=== PATIENT | male | born 1970 | race Caucasian/White ===

== ENCOUNTER → 2017-09-04 12:01 | Outpatient (CLI) | payer OTHER, SELFPAY ==
--- NOTE | 2017-09-04 | DI.RAD.S_ITS ---
PROCEDURE: XR CHEST 2V INDICATIONS: COUGH TECHNIQUE: 2 views of the chest were acquired. COMPARISON: Chest 06/17/2015 FINDINGS: Surgical changes and devices: Gastric banding device. Lungs and pleura: No pneumothorax. In the region of the minor fissure is an oval-shaped masslike density measuring 3.6 x 6.5 cm and appearing to contain a small central lucency suggesting cavitation. There is slight blunting of the posterior costophrenic angle indicating small effusion. Mediastinum: Mediastinal contours are normal. Heart size is normal. Bones and chest wall: No suspicious bony abnormalities. Soft tissues appear unremarkable. IMPRESSION: Right middle lobe mass lesion could be inflammatory but possibility of tumor, benign or malignant, cannot be excluded. Round atelectasis is possible. Fluid collection within the minor fissure, pseudotumor, is also possible, especially in view of small posterior effusion. Contrast-enhanced CT chest is suggested along with clinical/laboratory correlation for infectious process. Possibility of cavitation is raised. Dictated by: Erlin Baron M.D. on 09/04/2017 at 12:55 Approved by: Erlin Baron M.D. on 09/04/2017 at 13:02
== END ==
PROVIDERS: PCP Family Medicine; Visit Provider Family Medicine
DX: R05 Cough (principal); R91.8 Other nonspecific abnormal finding of lung field
CPT/HCPCS: 71046

== ENCOUNTER → 2017-09-07 14:05 | Outpatient (CLI) | payer OTHER, SELFPAY ==
--- NOTE | 2017-09-07 | DI.CT.S_ITS ---
PROCEDURE: CT CHEST W CON INDICATIONS: RIGHT LUNG MASS TECHNIQUE: After the administration of intravenous contrast, 5 mm thick sections acquired from the pulmonary apices to the posterior costophrenic angles. 7 mm thick coronal and sagittal MIP reformats were acquired. For radiation dose reduction, the following was used: automated exposure control, adjustment of mA and/or kV according to patient size. COMPARISON: [facility], , XR CHEST 2V, 09/04/2017, 12:10. FINDINGS: Image quality: Excellent. Lungs and pleura: In the area described on the prior radiographic comparison study dated 09/04/17, there is a large cavitary mass with surrounding groundglass attenuation measuring approximately 4.6 x 5.0 cm. Additional 1.4 cm nodule seen along the right heart border on image 26 series 3. Mild patchy opacities versus scarring within the lingula image 29 series 3. Mediastinum: Heart size is normal. No pericardial effusion. Enlarged subcarinal lymph node measuring 1.3 x 1.9 cm on image 28 series 2. Thoracic aorta and central pulmonary arteries are normal in size. Status post gastric banding. Circumferential distal esophageal wall thickening Bones and chest wall: 7mm sclerotic focus in the T9 vertebral body. No vertebral body compression fractures. No axillary or supraclavicular adenopathy by size criteria. Thyroid gland negative. Abdomen: Visualized upper abdominal solid organs appear normal. Upper abdominal bowel loops are normal in caliber. IMPRESSION: Large right middle lobe cavitary mass, which could reflect cavitary pneumonia, TB/fungal infection, or neoplasm such as squamous cell carcinoma among other possibilities. Recommend clinical correlation. Additional 1.4 cm solid nodule/satellite lesion along the right heart margin. Enlarged subcarinal lymph node, and prominent (although subcentimeter) right paratracheal lymph node. Circumferential distal esophageal wall thickening which could reflect severe esophagitis or post surgical appearance related to gastric banding, however if there is concern for esophageal malignancy; endoscopy could be performed for further assessment. Findings were personally telephoned to Dr. Davenport on 09/07/17 Dictated by: Abraham Dukes M.D. on 09/07/2017 at 15:43 Approved by: Abraham Dukes M.D. on 09/07/2017 at 16:28
== END ==
PROVIDERS: Family Provider Family Medicine; PCP Family Medicine; Visit Provider Family Medicine
DX: R91.8 Other nonspecific abnormal finding of lung field (principal); R59.0 Localized enlarged lymph nodes; R85.89 Other abnormal findings in specimens from digestive organs and abdominal cavity
CPT/HCPCS: 71260; Q9967

== ENCOUNTER → 2017-09-12 08:27 | Outpatient (CLI) | payer OTHER, SELFPAY ==
[2017-09-12 08:49] LABS: Platelet Count 351 X10^3/uL (150-400)
[2017-09-12 08:54] LABS: INR 1.3 (0.9-1.3); Prothrombin Time 14.3 SECONDS (10.1-12.7)
== END ==
PROVIDERS: PCP Family Medicine; Visit Provider Family Medicine
DX: R22.2 Localized swelling, mass and lump, trunk (principal)
CPT/HCPCS: 36415; 85049; 85610

== ENCOUNTER 2017-09-14 07:21 | Day surgery (SDC) | payer OTHER, SELFPAY ==
[2017-09-14] VITALS (12 sets, daily range): BP systolic 95–138; BP diastolic 62–88; PULSE 70–92; RESP 14–17; TEMP 36.2–37.7; O2SAT 96–100; BMI 30.8
--- NOTE | 2017-09-14 | DI.CT.S_ITS ---
PROCEDURE: CT BIOPSY LUNG RT Sedation analgesia for 40 minutes. INDICATIONS: RIGHT LUNG MASS TECHNIQUE: The indications, alternatives, benefits, risks, and possible complications of the procedure were communicated to the patient. Informed written consent from the patient was obtained and placed in the chart. Continuous EKG and hemodynamic monitoring was started by trained personnel. The patient was brought to the CT suite and finish repairer spiral CT imaging was performed with localization grid. The appropriate site for percutaneous access to the biopsy target was marked, was prepped and draped sterilely, and was infused with local anaesthesia. Under CT guidance, a core biopsy trocar and needle set was advanced to the biopsy target, and specimen(s) were obtained. The trocar and needle were then removed, and the patient was sent for post-procedure monitoring. COMPARISON: [facility], CT, CT CHEST [facility], 09/07/2017, 14:20. FINDINGS: Biopsy site: Right middle lobe mass Needle: 20 gauge biopsy needle with introducer trocar. Number of passes: 3 Medications: 1% lidocaine for local anaesthesia. IV Fentanyl and Versed for conscious sedation for 40 minutes (see nursing record). Complications: None. IMPRESSION: Successful CT-guided biopsy of right middle lobe lung mass biopsy. Dictated by: Kevin Sullivan M.D. on 09/14/2017 at 12:58 Approved by: Kevin Sullivan M.D. on 09/14/2017 at 13:02
--- NOTE | 2017-09-14 | PATH_ITS ---
[facility] Accession Number: [id number] . 01 Material submitted: . RIGHT LOWER LUNG . 02 Diagnosis: Right Lower Lung, Biopsy: Mild interstitial inflammation, reactive type II pneumocytes and foci of alveolar fibrin. Please see comment. No evidence of neoplasm. MRV/09/20/2017 . 02 Comment: A few minute fragments of alveolar parenchyma are present for evaluation. No obvious viral cytopathic effects or fungal organisms are identified. There is no necrosis, atypia, or neoplasm. . These changes are nonspecific, especially given the small biopsy size, but raise the consideration of an acute lung injury pattern. The differential diagnosis includes infection, collagen vascular disease, drug toxicity, and idiopathic forms. A wedge biopsy for further characterization of this process is recommended, if clinically indicated. . As part of routine quality reviewer, this case was also reviewed by Dr. Garcia who agrees with this interpretation. Dr. Foreman discussed the results with Dr. Davenport on 09/20/2017. . 02 Electronically signed: . Keli Foreman MD, Pathologist NPI- [id number] . 01 Gross description: . Received in formalin are multiple fragments of sheehan-white and red-brown tissue (0.2 x 0.2 cm by less than 0.1 cm in aggregate). Entirely submitted in cassette A1. ([id number]) /FRR . 02 Pathologist provided ICD-10: S27.301A . 02 CPT . 268039 Performed at: 01 [facility] [address] [facility] [place], [place], [place] [id number] MD William Munson MD Phone: [phone] Performed at: 02 [facility] [place] [address] [place] [id number] MD Naun Clark MD Phone: [phone]
--- NOTE | 2017-09-14 | DI.RAD.S_ITS ---
PROCEDURE: XR CHEST 1V INDICATIONS: post lung biopsy TECHNIQUE: One view of the chest was acquired. COMPARISON: [facility], , XR CHEST 2V, 09/04/2017, 12:10. [facility], CR, CHEST 2 VIEW, 06/17/2015, 12:42. Located [facility], CR, CHEST 2 VIEW, 11/17/2014, 6:57. FINDINGS: Surgical changes and devices: None. Lungs and pleura: No pleural effusions or pneumothorax. Lungs are again seen to be abnormal with an area of what appears to be alveolar infiltration, and a rounded morphology, beneath the minor fissure on the right containing an air-fluid level. The degree of alveolar infiltration has increased, mildly, now measuring up to 7.2 cm transverse and 5.4 cm craniocaudad, versus 6.5 x 3.6 cm previously. The air-fluid level is more easily visualized than on the prior study.. Mediastinum: Mediastinal contours appear normal. Heart size is normal. Bones and chest wall: No suspicious bony lesions. Overlying soft tissues appear unremarkable. Note is made of what appears to be a gastric lap band faintly visualized at the epigastrium near the midline. IMPRESSION: Cavitary pneumonia is considered more likely the cause of the abnormality on the right within the right middle lobe superiorly than cavitary malignancy. There is an air-fluid level, involving the upper quarter of the area of presumed dense pneumonia (rounded pneumonia). The degree of lung involvement has mildly enlarged as noted. Incidental mode of what appears to be a gastric lap band. Dictated by: Miguel Soto M.D. on 09/14/2017 at 13:29 Approved by: Miguel Soto M.D. on 09/14/2017 at 13:32
[2017-09-14] MEDS: fentaNYL 100 MCG/2 ML INJ IV (09:35)
[2017-09-14] MEDS: MIDAZOLAM 2 MG/2 ML VIAL 1 MG IV (09:35)
--- NOTE | 2017-09-14 13:14 | SUR.PHASEII ---
PT LEFT FOR FOLLOW UP CHEST XRAY VIA WHEELCHAIR IN STABLE CONDITION. PT ALERT AND TALKING TO RN. PT RETURNED FROM CHEST XRAY IN STABLE CONDITION. PT ALERT AND TALKING TO RN. BED IN LOWEST POSITION AND CALL LIGHT GIVEN TO PT. PT APPEARS COMFORTABLE AT THIS TIME.
--- NOTE | 2017-09-14 13:55 | SUR.PREOP ---
Spoke with Radiologist post CXR and approval for discharge received.
== END 2017-09-14 13:47 | disposition home or self-care (01) ==
LOC: OR 07:22
PROVIDERS: Family Provider Family Medicine; PCP Family Medicine; Visit Provider Family Medicine
PROC: BB24ZZZ Computerized Tomography (CT Scan) of Bilateral Lungs (ICD-10-PCS; CPT 32408; principal; 2017-09-14 08:30)
DX: S27.301A Unspecified injury of lung, unilateral, initial encounter (principal); R91.8 Other nonspecific abnormal finding of lung field; R04.89 Hemorrhage from other sites in respiratory passages; R61 Generalized hyperhidrosis; R79.82 Elevated C-reactive protein (CRP); R05 Cough; R53.83 Other fatigue
CPT/HCPCS: 32405; 71045; 77012; J2250; J3010

== ENCOUNTER → 2017-09-29 14:32 | Outpatient (CLI) | payer OTHER, SELFPAY ==
--- NOTE | 2017-09-29 | DI.RAD.S_ITS ---
PROCEDURE: XR CHEST 2V INDICATIONS: FOLLOW UP LUNG LESION TECHNIQUE: 2 views of the chest were acquired. COMPARISON: [facility], CT, CT CHEST W CON, 09/07/2017, 14:20. [facility], CR, XR CHEST 2V, 09/04/2017, 12:10. FINDINGS: Surgical changes and devices: None. Lungs and pleura: No pleural effusions or pneumothorax. Interval decrease in size of right middle lobe cavitary mass. Lung zones are clear. Mediastinum: Mediastinal contours are normal. Heart size is normal. Bones and chest wall: No suspicious bony abnormalities. Soft tissues appear unremarkable. IMPRESSION: Decrease in size of right middle lobe cavitary masslike opacity. Dictated by: Donn Long RRA Interpreted: Juan Baron MD on 09/29/2017 at 15:20 Approved by: Erlin Baron M.D. on 10/02/2017 at 9:23
== END ==
PROVIDERS: PCP Family Medicine; Visit Provider Family Medicine
DX: R91.1 Solitary pulmonary nodule (principal)
CPT/HCPCS: 71046

== ENCOUNTER → 2017-10-16 10:42 | Outpatient (CLI) | payer OTHER, SELFPAY ==
--- NOTE | 2017-10-16 | DI.RAD.S_ITS ---
PROCEDURE: XR CHEST 2V INDICATIONS: 47 year-old male with right lung mass. TECHNIQUE: 2 views of the chest were acquired. COMPARISON: [facility], CT, CT BIOPSY LUNG RT, 09/14/2017, 8:47. [facility], CR, XR CHEST 2V, 09/29/2017, 14:47. [facility], CR, XR CHEST 1V, 09/14/2017, 13:07. [facility], CR, XR CHEST 2V, 09/04/2017, 12:10. FINDINGS: Surgical changes and devices: Patient is status post gastric banding surgery. Lungs and pleura: No pleural effusions or pneumothorax. No acute airspace opacities. Previously noted cavitary right lung lesion has nearly completely resolved, with residual linear scarring. Mediastinum: Mediastinal contours are normal. Heart size is normal. Bones and chest wall: No suspicious bony abnormalities. Soft tissues appear unremarkable. IMPRESSION: Interval near complete resolution of right lung cavitary lesion, with residual linear scarring. Dictated by: Spencer Lewis M.D. on 10/16/2017 at 11:58 Approved by: Spencer Lewis M.D. on 10/16/2017 at 12:00
== END ==
PROVIDERS: Family Provider Family Medicine; PCP Family Medicine; Visit Provider Family Medicine
DX: R91.8 Other nonspecific abnormal finding of lung field (principal)
CPT/HCPCS: 71046

== ENCOUNTER → 2017-11-15 11:17 | Outpatient (CLI) | payer OTHER, SELFPAY ==
--- NOTE | 2017-11-15 11:20 | DI.RAD.S_ITS ---
PROCEDURE: XR CHEST 2V INDICATIONS: LUNG MASS TECHNIQUE: 2 views of the chest were acquired. COMPARISON: [facility], CR, XR CHEST 2V, 09/29/2017, 14:47. [facility], CR, XR CHEST 2V, 10/16/2017, 11:21. FINDINGS: Surgical changes and devices: Gastric banding.. Lungs and pleura: No pleural effusions or pneumothorax. Lungs are clear, very slight linear density in the right middle lobe near the minor fissure as residual from previous inflammation.. Mediastinum: Mediastinal contours are normal. Heart size is normal. Bones and chest wall: No suspicious bony abnormalities. Soft tissues appear unremarkable. IMPRESSION: Mild residual thickening right middle lobe, otherwise normal chest. Dictated by: Erlin Baron M.D. on 11/15/2017 at 12:57 Approved by: Erlin Baron M.D. on 11/15/2017 at 12:59
== END ==
PROVIDERS: PCP Family Medicine; Visit Provider Family Medicine
DX: R91.8 Other nonspecific abnormal finding of lung field (principal)
CPT/HCPCS: 71046

== ENCOUNTER → 2019-01-09 11:40 | Outpatient (CLI) | payer OTHER, SELFPAY ==
--- NOTE | 2019-01-09 | DI.RAD.S_ITS ---
PROCEDURE: XR CERVICAL SPINE 4V OR 5V INDICATIONS: NECK PAIN TECHNIQUE: 5 views of the cervical spine were acquired. COMPARISON: None. FINDINGS: Bones: No fractures or dislocations to the C7-T1 level. No suspicious bony lesions. There is straightening of normal cervical lordosis. No spondylolisthesis. Mild degenerative endplate changes at C4-5 through C6-7 levels are seen. There is decreased range of motion between flexion and extension, with preserved cervical bony alignment. Soft tissues: Prevertebral soft tissues are normal in thickness. IMPRESSION: Mild degenerative endplate changes in mid to lower cervical spine. Slightly decreased range of motion. No acute compression fracture or spondylolisthesis. Dictated by: Vincent Severino M.D. on 01/09/2019 at 13:26 Approved by: Vincent Severino M.D. on 01/09/2019 at 13:27
== END ==
PROVIDERS: PCP Family Medicine; Visit Provider Family Medicine
DX: M54.2 Cervicalgia (principal); M47.812 Spondylosis without myelopathy or radiculopathy, cervical region
CPT/HCPCS: 72050

== ENCOUNTER → 2019-04-22 17:46 | Outpatient (CLI) | payer OTHER, SELFPAY ==
--- NOTE | 2019-04-22 17:47 | DI.MRI.S_ITS ---
PROCEDURE: MR CERVICAL SPINE WO CON INDICATIONS: Right arm pain. Neck pain TECHNIQUE: Noncontrast sagittal T1 spin echo and T2 fast spin echo, sagittal STIR, foraminal oblique sagittal T2 fast spin echo, and axial gradient echo or T2 fast spin echo through the cervical spine. COMPARISON: None. FINDINGS: Image quality: Excellent. Alignment and Curvature: Straightening of the normal lordotic curvature. Trace anterolisthesis of C2 on C3, and C4 on C5 Bone Marrow: No fracture. Multilevel degenerative endplate sclerosis and spurring. Diffuse facet arthropathy. Diffuse mild disc height loss. Spinal Cord: Visualized spinal cord has normal size and signal. No cerebellar tonsillar herniation. Paraspinous Soft Tissues: No paravertebral masses. Prevertebral soft tissues are normal in thickness. C2-C3: Asymmetric mild left-sided canal stenosis. Mild right foraminal narrowing without nerve root compression. Moderate to severe left foraminal stenosis with nerve root compression C3-C4: Minimal central canal narrowing. Mild bilateral foraminal stenosis C4-C5: Moderate central canal stenosis. Bilateral severe foraminal stenoses with nerve root compression C5-C6: Moderate central canal narrowing. Mild bilateral foraminal narrowing. C6-C7: Asymmetric mild-moderate right-sided canal narrowing. Severe right foraminal stenosis with nerve root compression. Moderate left foraminal stenosis. C7-T1: No definite central canal narrowing. No foraminal stenosis IMPRESSION: Straightening of the normal cervical lordosis Diffuse bilateral foraminal stenoses as detailed above by spinal level Moderate C4-C5 and C5-C6 central canal narrowing Asymmetric mild-moderate C6-C7 right-sided canal narrowing Asymmetric mild C2-C3 left-sided canal narrowing Dictated by: Abraham Dukes M.D. on 04/23/2019 at 10:34 Approved by: Abraham Dukes M.D. on 04/23/2019 at 10:48
== END ==
PROVIDERS: PCP Family Medicine; Visit Provider Family Medicine
DX: M54.2 Cervicalgia (principal); M79.601 Pain in right arm; M48.02 Spinal stenosis, cervical region
CPT/HCPCS: 72141

== ENCOUNTER → 2020-01-02 15:41 | Outpatient (CLI) | payer OTHER, SELFPAY ==
--- NOTE | 2020-01-02 | DI.RAD.S_ITS ---
PROCEDURE: XR SHOULDER RT MIN 2V INDICATIONS: RIGHT SHOULDER PAIN TECHNIQUE: 3 views of the shoulder were acquired. COMPARISON: None. FINDINGS: Bones: No fracture. Mild AC and glenohumeral joint degeneration. Soft tissues: No suspicious soft tissue calcifications. IMPRESSION: Mild right shoulder joint degeneration Dictated by: Abraham Dukes M.D. on 01/02/2020 at 16:13 Approved by: Abraham Dukes M.D. on 01/02/2020 at 16:15
== END ==
PROVIDERS: PCP Family Medicine; Referring Provider Family Medicine; Visit Provider Family Medicine
DX: M25.511 Pain in right shoulder (principal); M19.011 Primary osteoarthritis, right shoulder
CPT/HCPCS: 73030

== ENCOUNTER 2020-05-01 04:14 | Emergency (ER) | payer OTHER, SELFPAY ==
[2020-05-01] VITALS (8 sets, daily range): BP systolic 128–162; BP diastolic 69–102; PULSE 63–78; RESP 13–22; TEMP 36.6; O2SAT 99–100; BMI 30.2
--- NOTE | 2020-05-01 04:30 | DI.CT.S_ITS ---
PROCEDURE: CT ABDOMEN PELVIS W CON INDICATIONS: severer abdominal pain, history of gastric surgery TECHNIQUE: After the administration of intravenous contrast, 5 mm thick sections acquired from the diaphragm to the symphysis. 5 mm coronal and sagittal reformats were acquired. For radiation dose reduction, the following was used: automated exposure control, adjustment of mA and/or kV according to patient size. COMPARISON: [facility], CT, CT CHEST W CON, 09/07/2017, 14:20. FINDINGS: Image quality: Excellent. ABDOMEN: Lung bases: Lung bases are clear. Heart size is normal. There is a small hiatal hernia. Concentric thickening in the distal esophagus. Solid organs: Liver is normal in size and enhancement. Gallbladder contains small gallstones. Biliary system is non dilated. Pancreas enhances normally. Spleen is normal in size and enhancement. No adrenal nodules. Kidneys demonstrate normal size and enhancement, without hydronephrosis. Peritoneum and bowel: Gastric banding. Stomach is distended with an air-fluid level. Bowel loops demonstrate normal wall thickness and caliber. Scattered colonic diverticula are present. No CT findings to suggest acute diverticulitis. No free fluid or air. Nodes and vessels: No retroperitoneal or mesenteric adenopathy by size criteria. Aorta and inferior vena cava are normal in size. Miscellaneous: No ventral hernias. PELVIS: Genitourinary: Bladder wall thickness is normal. Prostate is enlarged. Miscellaneous: No inguinal adenopathy. Small fat containing right inguinal hernia. Bones: No suspicious bony lesions. No vertebral body compression fractures. Degenerative disc and facet disease in lumbar spine. There is grade 1 anterolisthesis of L5 on S1. Mild chronic anterior wedge deformity of T11. IMPRESSION: 1. Gastric banding. There is gastric distention and an air-fluid level in stomach. The findings suggest nonspecific gastritis. 2. Small hiatal hernia. There is concentric thickening of the distal esophagus near the gastroesophageal junction, which may be secondary to esophagitis but EGD is suggested for further evaluation as esophageal neoplasm cannot be excluded. 3. Cholelithiasis. 4. Mild diverticulosis without diverticulitis. No significant discrepancy with the aircraft systems technician radiology preliminary report. Dictated by: Kevin Sullivan M.D. on 05/01/2020 at 8:06 Approved by: Kevin Sullivan M.D. on 05/01/2020 at 8:12
--- NOTE | 2020-05-01 04:35 | ED_ITS ---
HPI - Chest Pain General Chief Complaint: Chest Pain Stated Complaint: pain through chest wrapps around to back Time Seen by Provider: 05/01/20 04:16 Source: patient Mode of arrival: Ambulatory Limitations: no limitations History of Present Illness HPI narrative: 49-year-old male nonsmoker with a history of reflux and prior gastric band surgery presents with his in the chief complaint of epigastric and left upper abdominal pain and radiates to the back and sometimes down into his belly. He states that started rather suddenly a few hours prior to his arrival and does not seem to have any provocation or palliation. He denies any exertional component. He is not dizzy nor weak or lightheaded. She denies any shortness of breath. He has had no nausea, vomiting or diarrhea. He denies any recent travel or injury. MD complaint: chest pain Onset (ago): hour(s) Duration: intermittent Onset: during rest Pain location: left chest Severity: moderate Quality: tightness Pain radiation: none Relieving factors: nothing Exacerbating factors: nothing Related Data Allergies Allergy/AdvReac Type Severity Reaction Status Date / Time No Known Drug Allergies Allergy Verified 09/14/17 09:09 Review of Systems Constitutional Constitutional: Denies chills, Denies fatigue, Denies fever(s), Denies frequent falls, Denies lethargy and Denies weakness Eyes Eyes: Denies change in vision, Denies eye discharge, Denies irritation and Denies loss of vision ENT Ears, Nose, Mouth, and Throat: Denies change in voice, Denies dizziness, Denies neck pain, Denies sore throat and Denies throat swelling Cardiovascular Cardiovascular: Denies chest pain, Denies irregular heart rhythm, Denies lightheadedness, Denies palpitations, Denies dyspnea, Denies dyspnea on exertion and Denies orthopnea Respiratory Respiratory: Denies cough, Denies dyspnea, Denies dyspnea on exertion and Denies wheezing Gastrointestinal Gastrointestinal: Reports abdominal pain, Denies change in bowel habits, Denies diarrhea, Reports nausea and Denies vomiting Musculoskeletal Musculoskeletal: Denies neck pain and Denies numbness Integumentary/Breasts Skin/Breast: Denies pruritus, Denies erythema, Denies rash and Denies wounds Neurologic Neurologic: Denies behavioral changes, Denies confusion, Denies dizziness, Denies frequent falls, Denies loss of vision, Denies numbness and Denies weakness Psychiatric Psychiatric: Denies anxiety, Denies behavioral changes, Denies confusion, Denies depression, Denies homicidal ideation and Denies suicidal ideation Endocrine Endocrine: Denies fatigue, Denies flushing and Denies palpitations Hematologic/Lymphatic Hematologic/Lymphatic: Denies easy bruising Allergic/Immunologic Allergic/Immunologic: Denies urticaria, Denies throat swelling and Denies wheezing Patient History Social History household members: spouse Smoking Status: Never smoker Smoking Status: Never smoker Substance Use Type: does not use Exam Narrative Exam Narrative: GENERAL: [49] year old patient appears stated age. Well- nourished, well-developed patient, in mild distress. HEAD: Atraumatic. Normocephalic. EYES: Pupils equal round and reactive. Extraocular motions intact. No scleral icterus. No injection or drainage. ENT: Nose without bleeding, purulent drainage. Throat without erythema, tonsillar hypertrophy or exudate. Airway patent. NECK: Trachea midline. Non tender CARDIOVASCULAR: Regular rate and rhythm without murmurs, gallops, or rubs. RESPIRATORY: Clear to auscultation. Breath sounds equal bilaterally. No wheezes, rales, or rhonchi. GASTROINTESTINAL: Abdomen soft, tender in the epigastrium and left upper quadrant to palpation, nondistended. EXTREMITIES: No edema or joint tenderness. BACK: Nontender without deformity or crepitance. No flank tenderness. NEURO: AOx3. SKIN: No rash or erythema of visible areas Initial Vital Signs Initial Vital Signs: Vital Signs Temperature 98 F 05/01/20 04:15 Pulse Rate 76 05/01/20 04:15 Respiratory Rate 18 05/01/20 04:15 Blood Pressure 162/102 H 05/01/20 04:15 Pulse Oximetry 100 05/01/20 04:15 Course Orders Ordered: ED Orders 05/01/20 EKG-12 Lead Stat 05/01/20 04:30 CT abdomen pelvis w con Stat Complete Blood Count AUTO DIFF Stat Comprehensive Metabolic Panel Stat Lipase Stat Troponin & CK Cardiac Panel Stat 05/01/20 06:10 Troponin I Stat Discontinued Medications Hydromorphone HCl (Hydromorphone 0.5 Mg Inj) 0.5 mg IV NOW ONE Stop: 05/01/20 04:30 Last Admin: 05/01/20 04:51 Dose: 0.5 mg Documented by: SHITAL Sodium Chloride (Normal Saline 0.9%) 1,000 mls @ 1,000 mls/hr IV BOLUS ONE Stop: 05/01/20 05:28 Last Infusion: 05/01/20 06:31 Dose: 0 mls/hr Documented by: Admin: 05/01/20 04:51 Dose: 1,000 mls/hr Documented by: SHITAL Ondansetron HCl (Ondansetron 4 Mg/2 Ml Inj) 4 mg IV NOW ONE Stop: 05/01/20 04:30 Last Admin: 05/01/20 04:50 Dose: 4 mg Documented by: SHITAL Pantoprazole Sodium (Pantoprazole 40 Mg Vial) 40 mg IV NOW ONE Stop: 05/01/20 04:30 Last Admin: 05/01/20 04:51 Dose: 40 mg Documented by: SHITAL Vital Signs Vital signs: Vital Signs - 8 hr 05/01/20 04:15 05/01/20 04:19 05/01/20 04:30 Temperature 98 F Pulse Rate 76 78 75 Respiratory Rate 18 13 Blood Pressure 162/102 H Pulse Oximetry 100 99 100 05/01/20 05:00 05/01/20 05:30 05/01/20 06:00 Temperature Pulse Rate 69 71 63 Respiratory Rate 22 13 16 Blood Pressure Pulse Oximetry 99 100 100 05/01/20 06:30 05/01/20 06:54 Temperature Pulse Rate 66 70 Respiratory Rate 18 18 Blood Pressure 128/69 Pulse Oximetry 100 99 MDM - Chest Pain Lab Data Result diagrams: 05/01/20 04:30 05/01/20 04:30 Labs: Lab Results 05/01/20 05/01/20 05/01/20 Range/Units 04:30 04:30 06:10 WBC 6.6 (4.5-11.0) X10^3/uL RBC 5.50 (4.5-5.9) X10^6/uL Hgb 15.2 (13.5-17.5) g/dL Hct 45.4 (41-53) % MCV 82.5 (80-100) fL MCH 27.6 (26-34) PG MCHC 33.5 (30-36) % RDW 13.6 (11.6-14.8) % Plt Count 207 (150-400) X10^3/uL Neut % (Auto) 44.7 L (50-75) % Lymph % (Auto) 38.2 (25-40) % [place] % (Auto) 13.4 (3-14) % Eos % (Auto) 3.2 (2-4) % Baso % (Auto) 0.5 (0-2) % Neut # (Auto) 2900 (9244-5640) /uL Lymph # (Auto) 2500 (8836-2814) /uL [place] # (Auto) 900 (0-900) /uL Eos # (Auto) 200 (0-450) /uL Baso # (Auto) 0 (0-100) /uL Sodium 140 (137-145) mmol/L Potassium 3.3 L (3.4-5.1) mmol/L Chloride 100 (98-107) mmol/L Carbon Dioxide 33 H (22-32) mmol/L BUN 15 (9-20) mg/dL Creatinine 0.83 (0.66-1.25) mg/dL Estimated GFR > 60.0 (>60) mL/min BUN/Creatinine Ratio 18.1 (6-22) Glucose 105 H (70-100) mg/dL Calcium 9.1 (8.4-10.2) mg/dL Total Bilirubin 1.7 H (0.2-1.3) mg/dL AST 28 (17-59) IU/L ALT 30 (<50) IU/L Alkaline Phosphatase 47 (38-126) U/L Total Creatine Kinase 113 (55-170) U/L CK-MB (CK-2) 0.65 (<2.37) ng/mL CK-MB (CK-2) Rel Index 0.6 L (1.5-5.0) % Troponin I < 0.012 < 0.012 (0.01-0.034) ng/mL Total Protein 7.4 (6.3-8.2) g/dL Albumin 4.6 (3.5-5.0) g/dL Globulin 2.8 (1.7-4.1) g/dL Albumin/Globulin Ratio 1.6 (1.0-2.8) Lipase 119 (23-300) U/L Imaging Data CT scan - abdomen/pelvis: Radiologist's Impression: Well positioned lap band circumferential wall thickening of distal esophagus which may indicate esophagitis MDM Narrative Medical decision making narrative: Multiple causes of chest pain considered including MO, PE, pneumothorax, pneumonia, aortic dissection, and pleurisy. Patient reports no radiation, no diaphoresis, no provocation with exertion, and no vomiting. Most likely a GI source given his description, exam, CT findings. Patient's symptoms improved over duration of stay with above-stated therapies. Findings and discharge diagnosis discussed with patient/family followed by verbalization of understanding Return precautions discussed with patient/family whom verbalize understanding. Discharge Plan Departure Patient Disposition: Home Clinical Impression: Esophagitis, Atypical chest pain Instructions: DI for Atypical Chest Pain, DI for Epigastric Pain Activity Restrictions/Additional Instructions: *You have been diagnosed with [left upper abdominal and chest pain, most likely due to thickening of your lower esophagus. Labs and EKG of evaluating cardiac disease are very reassuring] *What to do: *Take medications as directed *Please consider a clear liquid diet for 24-48 hours and then advance as tolerated. *Follow up with your primary care provider in 2-3 days, call for an appointment. Let them know you were seen in the Emergency Department and that we ask that you be seen in follow up *Return to ER if you should have any new, worsening or concerning symptoms Referrals: Keyshawn Juárez MD [Primary Care Provider] -
[2020-05-01 04:38] LABS: Add Manual Diff / Slide Review NO; Basophils Absolute Auto 0 /uL (0-100); Basophils Percent Auto 0.5 % (0-2); Eosinophils Absolute Auto 200 /uL (0-450); Eosinophils Percent Auto 3.2 % (2-4); Hematocrit 45.4 % (41-53); Hemoglobin 15.2 g/dL (13.5-17.5); Lymphocytes Absolute Auto 2500 /uL (1100-4500); Lymphocytes Percent Auto 38.2 % (25-40); Mean Corpuscular HGB Conc 33.5 % (30-36); Mean Corpuscular Hemoglobin 27.6 PG (26-34); Mean Corpuscular Volume 82.5 fL (80-100); Monocytes Absolute Auto 900 /uL (0-900); Monocytes Percent Auto 13.4 % (3-14); Neutrophils Absolute Auto 2900 /uL (1500-7000); Neutrophils Percent Auto 44.7 % (50-75); Platelet Count 207 X10^3/uL (150-400); Red Cell Distribution Width 13.6 % (11.6-14.8); White Blood Cell Count 6.6 X10^3/uL (4.5-11.0)
[2020-05-01] MEDS: ONDANSETRON 4 MG/2 ML INJ IV (04:50)
[2020-05-01] MEDS: SODIUM CHLORIDE 0.9% 1,000 ML 1000 ML IV (04:51)
[2020-05-01] MEDS: HYDROMORPHONE 0.5 MG INJ IV (04:51)
[2020-05-01] MEDS: PANTOPRAZOLE 40 MG VIAL IV (04:51)
[2020-05-01 04:52] LABS: Alanine Aminotransferase 30 IU/L (<50); Albumin 4.6 g/dL (3.5-5.0); Albumin Globulin Ratio 1.6 (1.0-2.8); Alkaline Phosphatase 47 U/L (38-126); Aspartate Aminotransferase 28 IU/L (17-59); BUN Creatinine Ratio 18.1 (6-22); Bilirubin Total 1.7 mg/dL (0.2-1.3); Blood Urea Nitrogen 15 mg/dL (9-20); Calcium 9.1 mg/dL (8.4-10.2); Carbon Dioxide 33 mmol/L (22-32); Chloride 100 mmol/L (98-107); Creatine Kinase 113 U/L (55-170); Estimated Glomerular Filt Rate > 60.0 mL/min (>60); Globulin 2.8 g/dL (1.7-4.1); Glucose 105 mg/dL (70-100); HEMOLYSIS < 15 (0-50); Lipase 119 U/L (23-300); Potassium 3.3 mmol/L (3.4-5.1); Sodium 140 mmol/L (137-145); Total Protein 7.4 g/dL (6.3-8.2)
[2020-05-01 05:03] LABS: Troponin I < 0.012 ng/mL (0.01-0.034)
[2020-05-01 05:07] LABS: CKMB % Relative Index 0.6 % (1.5-5.0); Creatine Kinase MB 0.65 ng/mL (<2.37)
[2020-05-01 06:42] LABS: Troponin I < 0.012 ng/mL (0.01-0.034)
== END 2020-05-01 07:01 | disposition home or self-care (01) ==
PROVIDERS: Emergency Provider Emergency Medicine; PCP Family Medicine
DX: K20.90 Esophagitis, unspecified without bleeding (principal); R07.89 Other chest pain; R11.0 Nausea
CPT/HCPCS: 36415; 74177; 80053; 82550; 82553; 83690; 84484; 85025; 93005; 96361; 96374; 96375; 99283; 99284; C9113; J1170; J2405; Q9967

== ENCOUNTER → 2020-05-15 09:49 | Outpatient (CLI) | payer OTHER, SELFPAY ==
[2020-05-15 11:10] LABS: COVID19 -Nasal RAPID Negative (Negative)
== END ==
PROVIDERS: PCP Family Medicine; Visit Provider Surgery
DX: Z20.822 Contact with and (suspected) exposure to COVID-19 (principal); Z01.812 Encounter for preprocedural laboratory examination
CPT/HCPCS: 87635; C9803

== ENCOUNTER 2020-05-18 07:29 | Day surgery (SDC) | payer OTHER, SELFPAY ==
[2020-05-18] VITALS (7 sets, daily range): BP systolic 112–139; BP diastolic 80–86; PULSE 78–86; RESP 11–16; TEMP 35.9–37.1; O2SAT 95–100; BMI 31.0
--- NOTE | 2020-05-18 | PATH_ITS ---
[facility] Accession Number: [id number] . 01 Material submitted: . esophagus, E-G Junction - GE JUNCTION . 02 Diagnosis: Gastroesophageal Junction, Biopsy: Squamocolumnar junctional mucosa with mild chronic inflammation. Negative for specialized intestinal metaplasia, dysplasia or malignancy. MRV 05/20/2020 1415 Local . 02 Electronically signed: . Pritesh Velazquez MD, PhD, Pathologist NPI- [id number] . 01 Gross description: . The specimen is received in formalin, labeled GE junction and consists of three thomas-pink fragments of soft tissue, measuring 0.6 x 0.5 x 0.2 cm in aggregate. The specimen is entirely submitted in cassette A1. ([id number]) /[facility] 05/19/2020 1748 Local . 02 Pathologist provided ICD-10: K20.90 . 02 CPT . 221911 Performed at: 01 [facility] [address] [facility], [place], [place] [id number] MD William Munson MD Phone: [phone] Performed at: 02 [facility] [address] [place], [place] [id number] MD Keli Foreman MD Phone: [phone]
[2020-05-18] MEDS: LACTATED RINGERS 1,000 ML 125 ML IV (07:42)
[2020-05-18] MEDS: fentaNYL 250 MCG/5 ML INJ IV (08:20)
[2020-05-18] MEDS: LIDOCAINE 4% SOLN 50 ML 20 ML TOP (08:23)
[2020-05-18] MEDS: MIDAZOLAM 5 MG/5 ML VIAL IV (08:26)
--- NOTE | 2020-05-18 08:36 | PM.OP.ENDO ---
Operative Date/Time/Diagnoses Date of procedure: 05/18/20 Time of procedure: 08:37 Pre-op diagnosis: Esophageal thickening Post-op diagnosis: other (Esophagitis) Procedure & Clinicians Study performed: Esophagoduodenoscopy Same procedure as scheduled: Yes Indications: History gastric band distal esophageal thickening on imaging here for EGD Surgeon: Rick Bullard Procedure Notes Procedure in detail: Patient placed in left lateral decubitus position. Time out was performed. Procedural sedation was administered with Versed and Fentanyl. A bite block was placed. the scope was inserted into the mouth and advanced through the esophagus and into the stomach. The pylorus was intubated and the duodenum was normal to the 2nd portion. The scope was retroflexed within the stomach there was no hiatal hernia. No ulcers, or gastritis. The scope was withdrawn into the esophagus the Z line was seen at 40 cm from the incisions. There was mild esophagitis at the GE junction there was no calvin You's or ulcers. Biopsies of the GE junction were obtained with the forceps Stomach was desufflated and scope removed. Patient tolerated procedure well. Findings: other findings (Esophagitis) Specimen(s): other (GE junction) Complications: none Impression: Esophagitis Post-procedure Recommendations: Reflux diet, Continue medication(s) (Omeprazole 20 mg b.i.d.) and Will call with biopsy results Disposition: same day surgery
--- NOTE | 2020-05-18 08:44 | SUR.PHASEI ---
Stable PACU stay.
--- NOTE | 2020-05-18 08:53 | SUR.PHASEI ---
Stable PACU stay.
--- NOTE | 2020-05-18 09:30 | SUR.PHASEII ---
0920-Pt dcd in stable condition via wc
== END 2020-05-18 09:20 | disposition home or self-care (01) ==
PROVIDERS: PCP Family Medicine; Referring Provider Surgery; Visit Provider Surgery
PROC: 0DJ08ZZ Inspection of Upper Intestinal Tract, Via Natural or Artificial Opening Endoscopic (ICD-10-PCS; CPT 43235; principal; 2020-05-18 08:30)
DX: K29.50 Unspecified chronic gastritis without bleeding (principal); K21.00 Gastro-esophageal reflux disease with esophagitis, without bleeding; J45.909 Unspecified asthma, uncomplicated; Z98.890 Other specified postprocedural states
CPT/HCPCS: 43239; J2250; J3010

== ENCOUNTER → 2020-07-13 16:14 | Outpatient (CLI) | payer OTHER, SELFPAY ==
[2020-07-13 17:59] LABS: Free T3, Triiodothyronine Free 3.76 pg/mL (2.77-5.27); Free T4, Direct Thyroxine 0.97 ng/dL (0.78-2.19)
[2020-07-13 18:13] LABS: Thyroid Stimulating Hormone 4.17 uIU/mL (0.47-4.68)
== END ==
PROVIDERS: PCP Family Medicine; Referring Provider Family Medicine; Visit Provider Family Medicine
DX: R89.1 Abnormal level of hormones in specimens from other organs, systems and tissues (principal)
CPT/HCPCS: 36415; 84439; 84443; 84481

== ENCOUNTER 2021-04-21 03:32 | Emergency (ER) | payer OTHER, SELFPAY ==
[2021-04-21 03:38] VITALS: BP 176/97; PULSE 66; RESP 17; TEMP 37.1; O2SAT 99; BMI 33.1
--- NOTE | 2021-04-21 03:49 | ED_ITS ---
HPI - General Adult General Chief complaint: Abdominal Pain Stated complaint: ABDOMINIAL PAIN Time Seen by Provider: 04/21/21 03:35 Source: patient Mode of arrival: Ambulatory History of Present Illness HPI narrative: Patient is a 50-year-old male here for evaluation of upper abdominal discomfort. He states that it started a couple hours prior to arrival here in the ER. He was asleep that time it woke him from sleep. Has been constant. Does get somewhat worse with palpation but he cannot specifically identify the spot where it is sore. He does states that putting pressure on his back does help the discomfort somewhat. No nausea or vomiting. No diarrhea. He feels that he is somewhat constipated. No urinary symptoms. He does have a gastric band in place. He did release some of the pressure on the gastric band. He had very similar symptoms earlier this year. Had a CT scan performed which showed thickening of the distal esophagus but no other symptoms. He did have a upper endoscopy afterwards and was told that everything was okay. He is on a PPI. Related Data Home Medications Medication Instructions Recorded Confirmed albuterol sulfate 90 mcg/actuation 2 puff INHALATION Q6H PRN 05/14/20 05/18/20 aerosol inhaler gabapentin 300 mg capsule 300 mg PO BEDTIME 05/14/20 05/18/20 omeprazole 20 mg capsule,delayed 20 mg PO BID 05/14/20 05/18/20 release Previous Rx's Medication Instructions Recorded sucralfate 100 mg/mL oral 5 ml PO QID #420 ml 04/21/21 suspension (Carafate) Allergies Allergy/AdvReac Type Severity Reaction Status Date / Time No Known Drug Allergies Allergy Verified 05/18/20 07:40 Review of Systems Cardiovascular Cardiovascular: Denies chest pain and Denies dyspnea Respiratory Respiratory: Denies dyspnea Gastrointestinal Gastrointestinal: Reports as per HPI and Reports system reviewed and no additional complaints, except as documented Genitourinary Genitourinary: Denies dysuria Musculoskeletal Musculoskeletal: Reports system reviewed and no additional complaints, except as documented Integumentary/Breasts Skin/Breast: Reports system reviewed and no additional complaints, except as documented Hematologic/Lymphatic On Anticoagulants: No Patient History Medical History Asthma Surgical History Hx of laparoscopic gastric banding Family History Mother Hypertension Grandfather Heart disease Social History marital status: household members: spouse and children occupational status: employed Smoking Status: Never smoker alcohol intake: never substance use type: does not use Smoking Status: Never smoker Substance Use Type: does not use Exam Initial Vital Signs Initial Vital Signs: Vital Signs Temperature 98.8 F 04/21/21 03:38 Pulse Rate 66 04/21/21 03:38 Respiratory Rate 17 04/21/21 03:38 Blood Pressure 176/97 H 04/21/21 03:38 Pulse Oximetry 99 04/21/21 03:38 HENMT Head: normal to inspection and normocephalic Resp Effort & Inspection: normal respiratory effort Auscultation: clear to auscultation bilaterally Cardio Rate: regular rate Rhythm: regular rhythm GI Inspection: normal to inspection Palpation: soft, No firm, No guarding and tender (Diffuse tenderness) Back/Spine/Pelvis Thoracic/Lumbar Spine: No thoracic spinal tenderness and No lumbar spinal tenderness Skin General: no rashes or lesions noted Neuro General: patient alert, patient awake, patient oriented x3 and moves all extremities Extrem General: normal to inspection and capillary refill normal Psych Appearance: grossly normal and well kempt Course Orders Ordered: ED Orders 04/21/21 03:37 EKG-12 Lead Stat 04/21/21 03:50 CT abdomen pelvis w con Stat Complete Blood Count AUTO DIFF Stat Comprehensive Metabolic Panel Stat Lipase Stat Troponin & CK Cardiac Panel Stat Discontinued Medications Al Hydrox/Mg Hydrox/Simethicone 20 ml/ Lidocaine HCl 15 ml 0 ml PO NOW ONE Stop: 04/21/21 05:18 Last Admin: 04/21/21 05:33 Dose: 35 ml Documented by: SHITAL Hydromorphone HCl (Hydromorphone 1 Mg Inj) 1 mg IV NOW ONE Stop: 04/21/21 03:50 Last Admin: 04/21/21 03:57 Dose: 1 mg Documented by: SHITAL Ketorolac Tromethamine (Ketorolac 30 Mg/Ml Vial) 30 mg IV NOW ONE Stop: 04/21/21 05:18 Last Admin: 04/21/21 05:34 Dose: 30 mg Documented by: SHITAL Vital Signs Vital signs: Vital Signs - 8 hr 04/21/21 03:38 04/21/21 05:00 Temperature 98.8 F Pulse Rate 66 73 Respiratory Rate 17 14 Blood Pressure 176/97 H 148/94 H Pulse Oximetry 99 98 Medical Decision Making Lab Data Lab results reviewed: Yes I reviewed the patient's lab results. Result diagrams: 04/21/21 03:50 04/21/21 03:50 Labs: Lab Results 04/21/21 04/21/21 Range/Units 03:50 03:50 WBC 6.4 (4.5-11.0) X10^3/uL RBC 5.53 (4.5-5.9) X10^6/uL Hgb 14.5 (13.5-17.5) g/dL Hct 44.1 (41-53) % MCV 79.6 L (80-100) fL MCH 26.2 (26-34) PG MCHC 32.9 (30-36) % RDW 13.5 (11.6-14.8) % Plt Count 213 (150-400) X10^3/uL Neut % (Auto) 52.8 (50-75) % Lymph % (Auto) 29.0 (25-40) % [place] % (Auto) 12.7 (3-14) % Eos % (Auto) 4.9 H (2-4) % Baso % (Auto) 0.6 (0-2) % Neut # (Auto) 3400 (1554-2986) /uL Lymph # (Auto) 1900 (6889-5552) /uL [place] # (Auto) 800 (0-900) /uL Eos # (Auto) 300 (0-450) /uL Baso # (Auto) 0 (0-100) /uL Sodium 143 (137-145) mmol/L Potassium 3.6 (3.4-5.1) mmol/L Chloride 102 (98-107) mmol/L Carbon Dioxide 36 H (22-32) mmol/L BUN 19 (9-20) mg/dL Creatinine 0.93 (0.66-1.25) mg/dL Estimated GFR > 60.0 (>60) mL/min BUN/Creatinine Ratio 20.4 (6-22) Glucose 111 H (70-100) mg/dL Calcium 10.3 H (8.4-10.2) mg/dL Total Bilirubin 1.0 (0.2-1.3) mg/dL AST 34 (17-59) IU/L ALT 34 (<50) IU/L Alkaline Phosphatase 39 (38-126) U/L Total Creatine Kinase 152 (55-170) U/L CK-MB (CK-2) 1.02 (<2.37) ng/mL CK-MB (CK-2) Rel Index 0.7 L (1.5-5.0) % Troponin I < 0.012 (0.01-0.034) ng/mL Total Protein 7.7 (6.3-8.2) g/dL Albumin 4.7 (3.5-5.0) g/dL Globulin 3.0 (1.7-4.1) g/dL Albumin/Globulin Ratio 1.6 (1.0-2.8) Lipase 94 (23-300) U/L Urine Dip Bedside Urine Glucose Negative Bedside Urine Bilirubin - Negative Bedside Urine Ketone - Negative Urine Specific [place] 1.010 Bedside Urine Occult Blood - Negative Bedside Urine pH 8.5 Bedside Urine Protein - Negative Bedside Urine Urobilinogen - Negative Bedside Urine Nitrite - Negative Bedside Urine Leukocytes - Negative Esterase Point of care testing: Urine Dip Bedside Urine Glucose Negative Bedside Urine Bilirubin - Negative Bedside Urine Ketone - Negative Urine Specific [place] 1.010 Bedside Urine Occult Blood - Negative Bedside Urine pH 8.5 Bedside Urine Protein - Negative Bedside Urine Urobilinogen - Negative Bedside Urine Nitrite - Negative Bedside Urine Leukocytes - Negative Esterase Imaging Data CT scan - abdomen/pelvis: Radiologist's Impression: Distal esophageal thickening similar to the prior exam Adequate position gastric lap band. No evidence of erosion ECG Data Attestation: I personally reviewed and interpreted this ECG as follows: Interpretation: Sinus rhythm Ventricular rate is 65 Normal axis Normal QRS Normal QTC No ST T wave changes MDM Narrative Medical decision making narrative: Patient had minimal improvement with the Dilaudid. The CT scan does show distal esophageal thickening which is consistent with his prior CT scan earlier this year. He did get improvement after the Toradol and a GI cocktail. Unsure as to which 1 of these medications was the most successful. I do have some concern about gastric etiology of his symptoms. He is not have any vomiting. No fevers. No indication for antibiotics. We did discuss the use of his PPI. Will send home with a prescription for Carafate as well. He was given return precautions and follow-up instructions. He expressed understanding and agreement. Discharge Plan Departure Patient Disposition: Home Clinical Impression: Abdominal pain Instructions: DI for Abdominal Pain-Adult Activity Restrictions/Additional Instructions: It is important that she continue to take your omeprazole 2 times a day on an empty stomach like we discussed. I recommend you contact your primary doctor for a follow-up. Use the Carafate like we discussed as well. Return to the emergency department for any new or worsening symptoms Prescriptions: New sucralfate [Carafate] 100 mg/mL suspension 5 ml PO QID Qty: 420 0RF Rx Instructions: swish in mouth and swallow; use after food/drink No Action gabapentin 300 mg capsule 300 mg PO BEDTIME 0RF omeprazole 20 mg capsule,delayed release(DR/EC) 20 mg PO BID 0RF albuterol sulfate 90 mcg/actuation HFA aerosol inhaler 2 puff inhalation Q6H PRN (Reason: Shortness Of Breath) 0RF Referrals: Keyshawn Juárez MD [Primary Care Provider] -
--- NOTE | 2021-04-21 03:50 | DI.CT.S_ITS ---
PROCEDURE: CT ABDOMEN PELVIS W CON INDICATIONS: upper abdominal pain, history of gastric band TECHNIQUE: After the administration of oral and IV contrast, axial sections were acquired from the lung bases to the pubic symphysis. Coronal and sagittal reformats were performed. For radiation dose reduction, the following was used: automated exposure control, adjustment of mA and/or kV according to patient size. COMPARISON: [facility], CT, CT ABDOMEN PELVIS W CON, 05/01/2020, 4:36. FINDINGS: Image quality: Excellent. Lung bases: Bibasilar discoid atelectasis. Concentric thickening of the distal esophagus and GE junction. Heart: No significant findings. ABDOMEN: Liver: Tiny indeterminate hepatic hypodensities are most likely cysts. Gallbladder: Gallbladder contains gallstones. Biliary ducts: Unremarkable. Pancreas: Unremarkable. Spleen: Unremarkable. Adrenal Glands: Unremarkable. Kidneys and Ureters: Normal size and symmetrical enhancement. Small cortical nodules in kidneys bilaterally are most likely renal cysts Stomach and Bowel: Gastric banding. Small bowel loops, and colon are unremarkable. Normal appendix. A few colonic diverticula are noted. No diverticulitis. Peritoneum: No abnormal intraperitoneal fluid. No free air. Ventral Wall: No hernia. Abdominal Nodes: No retroperitoneal or mesenteric adenopathy by size criteria. Vessels: Aorta and inferior vena cava are normal in size. PELVIS: Pelvic Organs: Unremarkable. Bladder: Unremarkable. Pelvic Nodes: No enlarged lymph nodes. Miscellaneous: Small fat containing right inguinal hernia is seen. Bones: Degenerative changes are noted in the lower thoracic and lumbar spine. Grade 1 anterolisthesis of L5 on S1. IMPRESSION: 1. Concentric thickening of the distal esophagus and GE junction. Differential diagnosis include esophagitis versus esophageal cancer. Recommend clinical correlation and follow-up is EGD if clinically indicated. 2. Gastric banding. 3. Mild diverticulosis without diverticulitis. 4. Cholelithiasis. No significant discrepancy with the shiftman radiology preliminary report. Dictated by: Kevin Sullivan M.D. on 04/21/2021 at 7:05 Transcribed by: CHEYENNE on 04/21/2021 at 7:07 Approved by: Kevin Sullivan M.D. on 04/21/2021 at 8:12
[2021-04-21] MEDS: HYDROMORPHONE 1 MG INJ IV (03:57)
[2021-04-21 03:59] LABS: Add Manual Diff / Slide Review NO; Basophils Absolute Auto 0 /uL (0-100); Basophils Percent Auto 0.6 % (0-2); Eosinophils Absolute Auto 300 /uL (0-450); Eosinophils Percent Auto 4.9 % (2-4); Hematocrit 44.1 % (41-53); Hemoglobin 14.5 g/dL (13.5-17.5); Lymphocytes Absolute Auto 1900 /uL (1100-4500); Mean Corpuscular HGB Conc 32.9 % (30-36); Mean Corpuscular Hemoglobin 26.2 PG (26-34); Mean Corpuscular Volume 79.6 fL (80-100); Monocytes Absolute Auto 800 /uL (0-900); Monocytes Percent Auto 12.7 % (3-14); Neutrophils Absolute Auto 3400 /uL (1500-7000); Neutrophils Percent Auto 52.8 % (50-75); Platelet Count 213 X10^3/uL (150-400); Red Blood Cell Count 5.53 X10^6/uL (4.5-5.9); Red Cell Distribution Width 13.5 % (11.6-14.8); White Blood Cell Count 6.4 X10^3/uL (4.5-11.0)
[2021-04-21 04:09] LABS: Alanine Aminotransferase 34 IU/L (<50); Albumin 4.7 g/dL (3.5-5.0); Albumin Globulin Ratio 1.6 (1.0-2.8); Alkaline Phosphatase 39 U/L (38-126); Aspartate Aminotransferase 34 IU/L (17-59); BUN Creatinine Ratio 20.4 (6-22); Blood Urea Nitrogen 19 mg/dL (9-20); Calcium 10.3 mg/dL (8.4-10.2); Carbon Dioxide 36 mmol/L (22-32); Chloride 102 mmol/L (98-107); Creatine Kinase 152 U/L (55-170); Estimated Glomerular Filt Rate > 60.0 mL/min (>60); Glucose 111 mg/dL (70-100); Lipase 94 U/L (23-300); Potassium 3.6 mmol/L (3.4-5.1); Sodium 143 mmol/L (137-145); Total Protein 7.7 g/dL (6.3-8.2)
[2021-04-21 04:20] LABS: Troponin I < 0.012 ng/mL (0.01-0.034)
[2021-04-21 04:24] LABS: CKMB % Relative Index 0.7 % (1.5-5.0); Creatine Kinase MB 1.02 ng/mL (<2.37); HEMOLYSIS 15 (0-50)
[2021-04-21 05:00] VITALS: BP 148/94; PULSE 73; RESP 14; O2SAT 98
[2021-04-21 05:10] VITALS: PULSE 67; O2SAT 96
[2021-04-21] MEDS: MAG HYDROX/ALUMINUM/SIMETH SUS 20 ML, LIDOCAINE VISCOUS 2% 15 ML PO (05:33)
[2021-04-21] MEDS: KETOROLAC 30 MG/ML VIAL IV (05:34)
[2021-04-21 06:45] VITALS: O2SAT 98
[2021-04-21 06:46] VITALS: BP 126/79; PULSE 64; O2SAT 96
== END 2021-04-21 06:50 | disposition home or self-care (01) ==
PROVIDERS: Emergency Provider Emergency Medicine; PCP Family Medicine
DX: R10.10 Upper abdominal pain, unspecified (principal); R03.0 Elevated blood-pressure reading, without diagnosis of hypertension
CPT/HCPCS: 36415; 74177; 80053; 81003; 82550; 82553; 83690; 84484; 85025; 93005; 96374; 96375; 99284; J1170; J1885; Q9967

== ENCOUNTER → 2021-09-13 10:27 | Outpatient (ROUT) | payer OTHER, SELFPAY ==
[2021-09-13 11:11] LABS: COVID19 -Nasal RAPID Negative (Negative)
== END ==
PROVIDERS: PCP Family Medicine; Visit Provider Surgery
DX: Z20.822 Contact with and (suspected) exposure to COVID-19 (principal)
CPT/HCPCS: 87635; C9803

== ENCOUNTER 2021-09-14 08:46 | Day surgery (SDC) | payer OTHER, SELFPAY ==
--- NOTE | 2021-09-14 | PATH_ITS ---
[facility] Accession Number: [id number] . 01 Material submitted: . PART A: esophagus, E-G Junction - GE JUNCTION PART B: colon - DESCENDING COLON 60CM . 01 Diagnosis: A. Gastroesophageal Junction, Biopsy: Squamocolumnar junctional mucosa with mild chronic inflammation. Negative for specialized intestinal metaplasia, dysplasia, or malignancy. . B. Descending Colon at 60 cm, Biopsy: Tubular adenoma. MRV 09/17/2021 1219 Local . 01 Electronically signed: . Pritesh Velazquez MD, PhD, Pathologist NPI- [id number] . 01 Gross description: . Part A: GE JUNCTION: Received in formalin are 2 fragment(s) of thomas, soft tissue measuring 0.3 x 0.3 x 0.1 cm to 0.2 x 0.2 x 0.1 cm submitted entirely in 1 cassette(s) Part B: DESCENDING COLON 60CM: Received in formalin are multiple thomas mucoid fragments measuring 1.5 x 0.8 x 0.3 cm. Entirely submitted in 1 cassette. /CPE 09/15/2021 0819 Local . 01 Pathologist provided ICD-10: K20.80, D12.4 . 01 CPT . 939847, 905497 Specimen Comment: A courtesy copy of this report has been sent to [phone] Performed at: 01 [facility] [address] [place] [id number] MD William Munson MD Phone: [phone]
[2021-09-14 09:02] VITALS: BMI 33.4
[2021-09-14 09:07] VITALS: BP 123/84; PULSE 69; RESP 16; TEMP 36.4; O2SAT 100
[2021-09-14] MEDS: LACTATED RINGERS 1,000 ML 200 ML IV (09:16)
--- NOTE | 2021-09-14 10:24 | PM.PREOP ---
Pre-operative Note Interval Note History & Physical reviewed/Exam performed by Physician: Yes Changes to H&P: No
[2021-09-14] MEDS: LIDOCAINE 4% SOLN 50 ML 20 ML TOP (10:26)
[2021-09-14] MEDS: fentaNYL 250 MCG/5 ML INJ IV (11:00)
[2021-09-14] MEDS: MIDAZOLAM 5 MG/5 ML VIAL IV (11:01)
--- NOTE | 2021-09-14 11:02 | P.OP.EGD&C_ITS ---
Operative Date/Time/Diagnoses Date of procedure: 09/14/21 Time of procedure: 11:02 Pre-op diagnosis: blood per rectum abdominal pain Post-op diagnosis: same Procedure & Clinicians Study performed: colonoscopy and esophagoduodenoscopy Same procedure as scheduled: Yes Indications: blood per rectum and epigastric pain with esophageal thickening on imaging Surgeon: Rick Bullard Procedure Notes Procedure in detail: Medications: Conscious sedation using 9mg IV midazolam and 200mcg IV of fentanyl The history and physical was performed/updated and the patient is ASA class is 2 . The procedure was discussed in detail with the patient. Potential risks complications including infection, bleeding, missed diagnosis, perforation, need for surgery, and were explained. Their questions were answered and informed consent was obtained. Patient placed in left lateral decubitus position. Time out was performed. Procedural sedation was administered with Versed and Fentanyl. A bite block was placed. the scope was inserted into the mouth and advanced through the esophagus and into the stomach. The pylorus was intubated and the duodenum was normal to the 2nd portion. The scope was retroflexed within the stomach and there was a s mall hiatal hernia. No ulcers, or gastritis. The scope was withdrawn into the esophagus the Z line was seen at 35 cm from the incisions. There was mild inflammation at the GE junction no calvin You's biopsy was performed of the junction using biopsy forceps. No esophageal mass or stricture Stomach was desufflated and scope removed. Patient tolerated procedure well. Examination began with a thorough inspection of the perianal area there was no evidence of fissures, fistulae, external hemorrhoids or cutaneous malignancy. The colonoscopy scope was then placed into the anal canal and was advanced to the cecum, which was identified by the ileocecal valve, the appendiceal orifice and the confluence of the taenia. The scope was then slowly withdrawn examining colon thoroughly in all directions, irrigating it of any residual stool. FINDINGS 1. 5 cm long polyp within the descending colon at approximately 50-60 cm from anal verge. Wide base open portion of the polyp was removed with hot snare was unable to remove the entirety in particular its base secondary to its large size 2. Diverticulosis The patient tolerated the procedure well. They will be discharged once criteria are met. The prep was of good/excellent quality. The withdrawl time was 15 minutes. The sedation time was 30 minutes. Specimen(s): other (GE junction, descending colon polyp) Complications: none Impression: Large colonic polyp Post-procedure Plan for aftercare: Follow-up in surgical clinic 2 weeks to discuss polyp and it its further management Disposition: same day surgery
[2021-09-14 11:04] VITALS: BP 122/81; PULSE 64; RESP 16; TEMP 36.4; O2SAT 96
[2021-09-14 11:09] VITALS: BP 116/75; PULSE 81; RESP 14; O2SAT 96
[2021-09-14 11:14] VITALS: BP 107/72; PULSE 73; RESP 18; O2SAT 96
[2021-09-14 11:20] VITALS: BP 117/74; PULSE 76; RESP 16; TEMP 37.6; O2SAT 98
== END 2021-09-14 11:22 | disposition home or self-care (01) ==
PROVIDERS: PCP Family Medicine; Referring Provider Surgery; Visit Provider Surgery
PROC: 0DJ08ZZ Inspection of Upper Intestinal Tract, Via Natural or Artificial Opening Endoscopic (ICD-10-PCS; CPT 43235; principal; 2021-09-14 10:00)
PROC: 0DJD8ZZ Inspection of Lower Intestinal Tract, Via Natural or Artificial Opening Endoscopic (ICD-10-PCS; CPT 45378; 2021-09-14 10:00)
DX: K62.5 Hemorrhage of anus and rectum (principal); R10.9 Unspecified abdominal pain; J45.909 Unspecified asthma, uncomplicated; K57.30 Diverticulosis of large intestine without perforation or abscess without bleeding; K29.50 Unspecified chronic gastritis without bleeding; D12.4 Benign neoplasm of descending colon
CPT/HCPCS: 45385; 43239; 99152; 99153; J2250; J3010

== ENCOUNTER 2021-09-22 05:00 | Emergency (ER) | payer OTHER, SELFPAY ==
[2021-09-22] VITALS (8 sets, daily range): BP systolic 140–177; BP diastolic 78–98; PULSE 58–90; RESP 18–22; TEMP 36.6; O2SAT 96–100; BMI 34.2
--- NOTE | 2021-09-22 05:10 | ED_ITS ---
HPI - General Adult General Chief complaint: Abdominal Pain Stated complaint: abd pain Time Seen by Provider: 09/22/21 05:10 History of Present Illness HPI narrative: Gentleman with history of mild asthma, mild reflux disease with recent EGD and colonoscopy last week. The EGD showed a small hiatal hernia no significant esophageal abnormalities no significant gastritis. Did have a large polyp that was appreciated on CT scan and does need further evaluation as this was not able to be removed endoscopically. He has been doing well until approximately 3:00 a.m. when he woke up abruptly noting upper abdominal pain. It is in the upper abdomen get not able to be pinpointed. It is not worsened with palpation it is associated with significant pain and diaphoresis. He does not have overt chest pain or palpitations. He is not feeling diaphoretic. The pain is severe yet he does not complain specifically of nausea and has had no vomiting. He is able to pass gas. Related Data Home Medications Medication Instructions Recorded Confirmed albuterol sulfate 90 mcg/actuation 2 puff INHALATION Q6H PRN 05/14/20 09/14/21 aerosol inhaler gabapentin 300 mg capsule 300 mg PO BEDTIME 05/14/20 09/14/21 omeprazole 20 mg capsule,delayed 20 mg PO BID 05/14/20 09/14/21 release Previous Rx's Medication Instructions Recorded sucralfate 100 mg/mL oral 5 ml PO QID #420 ml 04/21/21 suspension (Carafate) Allergies Allergy/AdvReac Type Severity Reaction Status Date / Time No Known Drug Allergies Allergy Verified 09/02/21 11:34 Review of Systems Review of Systems Narrative: Remainder of complete review of systems is otherwise unremarkable except for that included in the HPI. Patient History Medical History Asthma Surgical History Hx of laparoscopic gastric banding Family History Mother Hypertension Grandfather Heart disease Social History marital status: household members: spouse and children occupational status: employed Smoking Status: Never smoker alcohol intake: never substance use type: does not use Smoking Status: Never smoker Substance Use Type: does not use Exam Initial Vital Signs Initial Vital Signs: Vital Signs Temperature 97.8 F 09/22/21 05:11 Pulse Rate 71 09/22/21 05:11 Respiratory Rate 18 09/22/21 05:11 Blood Pressure 177/95 H 09/22/21 05:11 Pulse Oximetry 99 09/22/21 05:11 General: Healthy appearing, in obvious distress with abdominal pain, mild diaphoresis. Able to give a complete and coherent history. Well-nourished well-developed HEENT: Moist mucous membranes, normal sclera with reactive pupils, Neck: No JVD, supple Respiratory: Lungs are clear to auscultation, no wheezing no rales no rhonchi. Full and symmetrical air movement Cardiac: Regular rate and rhythm no murmurs no bruits Abdomen: Soft, nontender to palpation, no rebound or guarding, good bowel tones, no flank pain Skin: Warm but diaphoretic, no rashes Neurologic: Grossly neurologically intact with no obvious asymmetries or abnormalities Extremities: No trauma, well perfused Psych: Cooperative, appropriate insight and affect Course Orders Ordered: ED Orders 09/22/21 EKG-12 Lead Routine 09/22/21 05:15 Complete Blood Count AUTO DIFF Stat Comprehensive Metabolic Panel Stat Lipase Stat Magnesium Stat Troponin I Stat 09/22/21 05:19 CT abdomen pelvis w con Stat 09/22/21 05:35 XR chest 1V Stat Hydromorphone HCl (Hydromorphone 0.5 Mg Inj) 0.5 mg IV Q15MIN PRN PRN Reason: Pain, Last Admin: 09/22/21 05:56 Dose: 0.5 mg Documented by: [email or web address] Admin: 09/22/21 05:25 Dose: 0.5 mg Documented by: [email or web address] Discontinued Medications Sodium Chloride (Normal Saline 0.9%) 1,000 mls @ 1,000 mls/hr IV BOLUS ONE Stop: 09/22/21 06:17 Last Admin: 09/22/21 05:26 Dose: 1,000 mls/hr Documented by: [email or web address] Ondansetron HCl (Ondansetron 4 Mg/2 Ml Inj) 4 mg IV NOW ONE Stop: 09/22/21 05:19 Last Admin: 09/22/21 05:25 Dose: 4 mg Documented by: [email or web address] Vital Signs Vital signs: Vital Signs - 8 hr 09/22/21 05:11 09/22/21 06:00 Temperature 97.8 F Pulse Rate 71 90 Respiratory Rate 18 22 Blood Pressure 177/95 H 160/78 H Pulse Oximetry 99 97 Medical Decision Making Lab Data Result diagrams: 09/22/21 05:15 09/22/21 05:15 Labs: Lab Results 09/22/21 09/22/21 Range/Units 05:15 05:15 WBC 6.2 (4.5-11.0) X10^3/uL RBC 5.44 (4.5-5.9) X10^6/uL Hgb 13.9 (13.5-17.5) g/dL Hct 42.1 (41-53) % MCV 77.3 L (80-100) fL MCH 25.6 L (26-34) PG MCHC 33.1 (30-36) % RDW 14.1 (11.6-14.8) % Plt Count 206 (150-400) X10^3/uL Neut % (Auto) 47.3 L (50-75) % Lymph % (Auto) 36.3 (25-40) % Wallace % (Auto) 13.1 (3-14) % Eos % (Auto) 2.8 (2-4) % Baso % (Auto) 0.5 (0-2) % Neut # (Auto) 2900 (3271-8453) /uL Lymph # (Auto) 2200 (6520-0969) /uL Wallace # (Auto) 800 (0-900) /uL Eos # (Auto) 200 (0-450) /uL Baso # (Auto) 0 (0-100) /uL Sodium 143 (137-145) mmol/L Potassium 3.7 (3.4-5.1) mmol/L Chloride 105 (98-107) mmol/L Carbon Dioxide 30 (22-32) mmol/L BUN 16 (9-20) mg/dL Creatinine 0.87 (0.66-1.25) mg/dL Estimated GFR > 60 (>60) mL/min BUN/Creatinine Ratio 18.4 (6-22) Glucose 105 H (70-100) mg/dL Calcium 9.2 (8.4-10.2) mg/dL Magnesium 1.9 (1.6-2.3) mg/dL Total Bilirubin 1.2 (0.2-1.3) mg/dL AST 33 (17-59) IU/L ALT 41 (<50) IU/L Alkaline Phosphatase 43 (38-126) U/L Troponin I < 0.012 (0.01-0.034) ng/mL Total Protein 7.7 (6.3-8.2) g/dL Albumin 4.8 (3.5-5.0) g/dL Globulin 2.9 (1.7-4.1) g/dL Albumin/Globulin Ratio 1.7 (1.0-2.8) Lipase 90 (23-300) U/L Imaging Data CT scan - abdomen/pelvis: Radiologist's Impression: Nonobstructing cholelithiasis with gas-filled gallstones. Renal cyst. Gastric band with persistent distal esophageal wall thickening. The appendix is seen and is normal. Pancreas is within normal limits. No biliary ductal dilatation or pericholecystic fluid. Layo Wharton MD Chest x-ray: Radiologist's Impression: Normal heart and lung Layo Wharton MD ECG Data Interpretation: Sinus rhythm at a rate of 64 No acute ischemic changes Normal intervals, normal axis MDM Narrative Medical decision making narrative: 51-year-old gentleman presents with acute onset abdominal pain diffuse upper abdomen. He has had a lap band surgery does note that he had quite a bit that yesterday he had a large amount of water this morning to see if that might help with his pain(it did not). No evidence of chest pathology, cardiomegaly, pneumothorax, pneumonia. No evidence of acute coronary syndrome with normal troponins and normal EKG. He did have some minor asymmetry in blood pressures between the 2 arms but his mediastinum is not widened nor does his visualized aorta on the CT scan appear significantly abnormal. No evidence of liver abnormalities or obstructive pattern to blood work. CT scan shows no acute abnormalities. He does have nonobstructing gallstones that are gas-filled were seen previously and essentially unchanged. He does not have significant stool loading. I am rather impressed with his distended abdomen distal to the lap band. This may be contributing to his overall symptom s. He states his last meal was last night and was quite heavy. At this point with no evidence of infection, surgical abdomen, acute findings on CT scan chest x-ray or blood work I am going to suggest that he go home. Will ask him to return if symptoms worsen and no will follow-up with his primary care physician. Of note there is again mention of a thickened esophageal distal wall on CT scan. EGD done 1 week ago did not notice dramatic changes and biopsies of the area were done. In further discussion with the patient possibility of gallbladder dysfunction is entertained and he may benefit from an outpatient HIDA study. He notes that the last time he ate was 12 hours ago yet his stomach is still significantly distended and correlates with location of much of his pain. Recommended liquid diet for the next day or so and see how his pain resolves. He has an appointment to follow-up with his Gastroenterology/surgeon later today. At this point he clearly does not have an acute abdomen and he is safe for home discharge Discharge Plan Departure Patient Disposition: Home Clinical Impression: Abdominal pain Instructions: DI for Abdominal Pain-Adult Activity Restrictions/Additional Instructions: Thank you for coming in today Despite the amount of pain with which she presented, I did not find anything life-threatening on your workup. Specifically, there is no heart attack, collapsed lung, gallbladder disease, pancreatitis, intra-abdominal abnormality that would require surgery, appendicitis, diverticulitis. Of note, your stomach was significantly distended and this was 12 hours after your last meal. That may be contributing. Also of note, you do have multiple gallstones none of which were blocking but this could be contributing to the problem. It may be worth discussing with your primary care physician an additional test to look at gallbladder function called a HIDA study. This is an outpatient nuclear medicine study. At this time it is safe for you to be discharged home. I would recommend light liquid diet today and if your symptoms worsen you are welcome to return to the emergency department and I am happy to re-evaluate. Prescriptions: No Action gabapentin 300 mg capsule 300 mg PO BEDTIME 0RF omeprazole 20 mg capsule,delayed release(DR/EC) 20 mg PO BID 0RF albuterol sulfate 90 mcg/actuation HFA aerosol inhaler 2 puff inhalation Q6H PRN (Reason: Shortness Of Breath) 0RF sucralfate [Carafate] 100 mg/mL suspension 5 ml PO QID Qty: 420 0RF Rx Instructions: swish in mouth and swallow; use after food/drink Referrals: Keyshawn Juárez MD [Primary Care Provider] -
--- NOTE | 2021-09-22 05:19 | DI.CT.S_ITS ---
PROCEDURE: CT ABDOMEN PELVIS W CON INDICATIONS: acute onset diffuse abdominal pain TECHNIQUE: After the administration of intravenous contrast, axial sections acquired from the lung bases to the pubic symphysis. Coronal and sagittal reformats were performed. For radiation dose reduction, the following was used: automated exposure control, adjustment of mA and/or kV according to patient size. COMPARISON: [facility], CT, CT ABDOMEN PELVIS W CON, 04/21/2021, 4:02. [facility], CT, CT ABDOMEN PELVIS W CON, 05/01/2020, 4:36. FINDINGS: Image quality: Excellent. Lung bases: Unremarkable. Heart: No significant findings. ABDOMEN: Liver: Unremarkable. Gallbladder: Contains cholesterol gallstones. Biliary ducts: Unremarkable. Pancreas: Unremarkable. Spleen: Unremarkable. Adrenal Glands: Unremarkable. Kidneys and Ureters: Small left renal cyst. Stomach and Bowel: Gastric lap band is stable in position. Circumferential wall thickening involving the distal esophagus is unchanged compared to the prior exam. The small bowel loops, and colon are unremarkable. Scattered colonic diverticuli without evidence of diverticulitis. The appendix is normal. Peritoneum: No abnormal intraperitoneal fluid. No free air. Ventral Wall: Small fat containing umbilical hernia. Abdominal Nodes: No retroperitoneal or mesenteric adenopathy by size criteria. Vessels: Aorta and inferior vena cava are normal in size. PELVIS: Pelvic Organs: Unremarkable. Bladder: Unremarkable. Pelvic Nodes: No enlarged lymph nodes. Miscellaneous: No hernias are seen. Bones: Spine degenerative disc disease and facet arthropathy.Grade 1 L5-S1 degenerative spondylolisthesis is stable. IMPRESSION: 1. Gastric lap band is stable in position. 2. Persistent circumferential wall thickening involving the distal esophagus. Finding could be secondary to neoplastic process or inflammation. Recommend endoscopy for definitive characterization. 3. Cholelithiasis. 4. Colonic diverticulosis without evidence of diverticulitis. Dictated by: Lashaun Allison MD, PhD on 09/22/2021 at 7:43 Approved by: Lashaun Allison MD, PhD on 09/22/2021 at 7:49
[2021-09-22 05:25] LABS: Add Manual Diff / Slide Review NO; Basophils Absolute Auto 0 /uL (0-100); Basophils Percent Auto 0.5 % (0-2); Eosinophils Absolute Auto 200 /uL (0-450); Eosinophils Percent Auto 2.8 % (2-4); Hematocrit 42.1 % (41-53); Hemoglobin 13.9 g/dL (13.5-17.5); Lymphocytes Absolute Auto 2200 /uL (1100-4500); Lymphocytes Percent Auto 36.3 % (25-40); Mean Corpuscular HGB Conc 33.1 % (30-36); Mean Corpuscular Hemoglobin 25.6 PG (26-34); Mean Corpuscular Volume 77.3 fL (80-100); Monocytes Absolute Auto 800 /uL (0-900); Monocytes Percent Auto 13.1 % (3-14); Neutrophils Absolute Auto 2900 /uL (1500-7000); Neutrophils Percent Auto 47.3 % (50-75); Platelet Count 206 X10^3/uL (150-400); Red Blood Cell Count 5.44 X10^6/uL (4.5-5.9); Red Cell Distribution Width 14.1 % (11.6-14.8); White Blood Cell Count 6.2 X10^3/uL (4.5-11.0)
[2021-09-22] MEDS: ONDANSETRON 4 MG/2 ML INJ IV (05:25)
[2021-09-22] MEDS: HYDROMORPHONE 0.5 MG INJ IV ×3 (05:25→06:29)
[2021-09-22] MEDS: SODIUM CHLORIDE 0.9% 1,000 ML 1000 ML IV (05:26)
[2021-09-22 05:33] LABS: Alanine Aminotransferase 41 IU/L (<50); Albumin 4.8 g/dL (3.5-5.0); Albumin Globulin Ratio 1.7 (1.0-2.8); Alkaline Phosphatase 43 U/L (38-126); Aspartate Aminotransferase 33 IU/L (17-59); BUN Creatinine Ratio 18.4 (6-22); Bilirubin Total 1.2 mg/dL (0.2-1.3); Blood Urea Nitrogen 16 mg/dL (9-20); Calcium 9.2 mg/dL (8.4-10.2); Carbon Dioxide 30 mmol/L (22-32); Chloride 105 mmol/L (98-107); Estimated Glomerular Filt Rate > 60 mL/min (>60); Globulin 2.9 g/dL (1.7-4.1); Glucose 105 mg/dL (70-100); HEMOLYSIS < 15 (0-50); Lipase 90 U/L (23-300); Magnesium 1.9 mg/dL (1.6-2.3); Potassium 3.7 mmol/L (3.4-5.1); Sodium 143 mmol/L (137-145); Total Protein 7.7 g/dL (6.3-8.2)
--- NOTE | 2021-09-22 05:35 | DI.RAD.S_ITS ---
PROCEDURE: XR CHEST 1V INDICATIONS: acute upper abdominal pain TECHNIQUE: One view of the chest was acquired. COMPARISON: [facility], , XR CHEST 2V, 11/15/2017, 11:13. FINDINGS: Surgical changes and devices: Gastric lap band device. Lungs and pleura: Lungs are clear. No pleural effusions or pneumothorax. Mediastinum: Mediastinal contours appear normal. Heart size is normal. Bones and chest wall: No suspicious bony lesions. Overlying soft tissues appear unremarkable. IMPRESSION: No acute cardiopulmonary disease process. Dictated by: Lashaun Allison MD, PhD on 09/22/2021 at 7:56 Approved by: Lashaun Allison MD, PhD on 09/22/2021 at 7:57
[2021-09-22 05:45] LABS: Troponin I < 0.012 ng/mL (0.01-0.034)
== END 2021-09-22 07:09 | disposition home or self-care (01) ==
PROVIDERS: Emergency Provider Emergency Medicine; PCP Family Medicine
DX: R10.10 Upper abdominal pain, unspecified (principal); Z98.84 Bariatric surgery status
CPT/HCPCS: 36415; 71045; 74177; 80053; 81003; 83690; 83735; 84484; 85025; 93005; 96374; 96375; 99284; J1170; J2405; Q9967

== ENCOUNTER → 2021-10-19 08:58 | Outpatient (CLI) | payer OTHER, SELFPAY ==
[2021-10-19 10:20] LABS: COVID19 -Nasal RAPID Negative (Negative)
== END ==
PROVIDERS: PCP Family Medicine; Visit Provider Surgery
DX: Z20.822 Contact with and (suspected) exposure to COVID-19 (principal); Z01.812 Encounter for preprocedural laboratory examination
CPT/HCPCS: 87635; C9803

== ENCOUNTER 2021-10-20 06:25 | Inpatient (IN) | payer OTHER, SELFPAY ==
--- NOTE | 2021-10-11 16:31 | DIET.OUTPTC ---
Dietary Outpatient Consultation Note Consultation Date: 10/11/2021 Povided ERAS education to pt via phone. Pt received booklet and Pre-surgery drink from schedulers. Pt well nourished prior to surgery, removing polyp which was large and difficult to remove c colonoscopy. Pt will drink presurgery drink when he wakes, check in time 645am. Educated pt on diet advancement at hospital- clears to fulls to low residue, able to follow normal diet 4-6w out depending on how he feels. Stressed importance of high pro diet to support healing. Reviewed foods to avoid. Pt has no dietary restrictions. Surgery planned 10/20/21. Electronically Signed by: Chanel Amado 10/11/21 16:31 Clinical Dietitian [address] [address]
[2021-10-13 12:18] VITALS: BMI 34.2
[2021-10-20] VITALS (17 sets, daily range): BP systolic 101–130; BP diastolic 58–86; PULSE 65–99; RESP 16–19; TEMP 35.8–37.6; O2SAT 94–98; BMI 34.2
--- NOTE | 2021-10-20 | PATH_ITS ---
[facility] Accession Number: [id number] . 01 Material submitted: . PART A: gallbladder - GALLBLADDER PART B: colon - LEFT COLON . 01 Clinical history: . B: SILK STITCH TO PROXIMAL COLON, PROLENE STITCH BARBA POLYP INPT CALCULUS OF BILE DUCT WITHOUT CHOLANGITIS POLYP OF COLON . 01 Diagnosis: A. Gallbladder, Cholecystectomy: Chronic cholecystitis with cholesterolosis and cholelithiasis. . B. Left Colon, Segmental Resection: Tubular adenoma. No high-grade dysplasia or malignancy identified. Resection margins are negative for neoplasia. Two benign lymph nodes identified. [facility] 10/22/2021 1335 Local . 01 Electronically signed: . Negra Vega MD, Pathologist NPI- [id number] . 01 Gross description: . A. Received in formalin labeled with the patient's name and gallbladder consists of a previously disrupted gallbladder measuring 5.1 x 3.0 x 2.2 cm. The serosa is congested, smooth, and glistening, and the hepatic surface is roughened with a full-thickness defect measuring 1.3 cm in greatest dimension. The cystic duct is closed with a clamp, is inked blue, and no pericystic lymph node is identified. Opening the specimen reveals the lumen to be filled with three brown faceted calculi occluding the cystic duct with minimal brown mucoid bile. The mucosa is brown and velvety with multiple yellow pinpoint areas consistent with cholesterol. No polyps or lesions are identified, and the handley average 0.5 cm thick. Test Preparer sections to include the cystic duct margin and full-thickness sections are submitted in cassette A1 B. Received in formalin labeled with the patient's name and left colon consists of an oriented segment of bowel with a long black suture at one end designating proximal, per the requisition, and a purple stitch on the mucosa designating polyp, per the requisition. The specimen measures 21.2 cm in length and averages 4.0 cm in circumference. The specimen has been previously opened longitudinally adjacent to the teniae coli. The serosa is thomas, smooth, and glistening, and is mostly covered by attached soft yellow adipose extending up to 8.3 cm. The proximal staple line measures 3.5 cm in length and is inked blue while the distal staple line measures 3.3 cm and is inked black. No perforations are identified. The mucosa is significant for a single polypoid structure measuring 0.5 cm in greatest dimension, and is adjacent to the purple suture. The polyp is largely free of both margins measuring greater than 8.0 cm from the closest margin. Sectioning reveals the polyp to be confined to the mucosa. The remaining mucosa is thomas and velvety with normal appearing folds. No additional polyps, lesions, or diverticula identified. An area of the mucosa measuring approximately 4.0 x 3.5 cm has dark sheehan submucosa. Palpation reveals three thomas lymph node candidates ranging from 0.1 to 0.5 cm in greatest dimension. . Test Preparer sections are submitted as follows: B1: Proximal margin en face. B2: Distal margin en face. B3: Area with polyp. B4: Area of sheehan submucosa. B5: Three intact lymph node candidates. ([id number]) /MRV 10/21/2021 1757 Local . 01 Pathologist provided ICD-10: K80.50, K63.5 . 01 CPT . 787446, [id number] Specimen Comment: A courtesy copy of this report has been sent to [phone] Performed at: 01 [facility] [address] [place] [address], [place], [place] [id number] MD William Munson MD Phone: [phone]
[2021-10-20] MEDS: LACTATED RINGERS 1,000 ML 100 ML IV ×3 (07:17→11:46)
--- NOTE | 2021-10-20 07:37 | PM.PREOP ---
Pre-operative Note Interval Note History & Physical reviewed/Exam performed by Physician: Yes Changes to H&P: No
[2021-10-20] MEDS: PIPERACILLIN/TAZO 4.5 GM in SODIUM CHLORIDE 0.9% 100 ML IV (08:12)
[2021-10-20] MEDS: BUPIVACAINE 0.25% (PF) VIAL 30 ML INJ (08:32)
--- NOTE | 2021-10-20 08:46 | SUR.OPER ---
Lithotomy on padded OR bed. [place] Pad Positioner under torso. Head on pillow, arms padded and tucked at sides. Legs secured in padded yellow fins stirrups. Patients cell phone and glasses placed in his belongings bag in pre-op.
[2021-10-20] MEDS: BUPIVACAINE LIPOSOME 266 MG/20 ML VIAL INJ (12:10)
--- NOTE | 2021-10-20 13:11 | PM.OP.1 ---
Operative Date/Time/Diagnoses Date of procedure: 10/20/21 Time of procedure: 13:11 Pre-op diagnosis: biliary colic, colonic polyp Post-op diagnosis: same Procedure & Clinicians Procedure: laparoscopic cholecystectomy and colectomy Same procedure as scheduled: Yes Indications: 51-year-old man with biliary colic and a he incompletely resected polyp of the descending colon. Biopsy of the polyp from colonoscopy demonstrates adenoma without malignancy. Polyp was long and with broad base no significant stalk was not amenable to complete endoscopic resection. Surgeon: Rick Bullard Anesthesia Type: General Operative Notes Findings: Residual polyp within the descending colon marked with a Prolene stitch. Gallbladder was significant for large stones. Anastomosis is widely patent and without tension Specimen(s): other (gallbladder, left colon silk stitch tang proximal and the Prolene tang the residual polyp) Estimated Blood Loss (mL): 50 Procedure in detail: Patient was brought to the operating room placed supine on the table. Bilateral lower extremity compression devices were applied. He received Zosyn prior to skin incision. He was prepped and draped in sterile fashion. The Watters catheter was sterilely placed. A infraumbilical incision was made and the abdomen was opened atraumatically. A balloon trocar was then placed into the abdomen and pneumoperitoneum was established. There was no evidence of injury upon entry. We began by a placing additional 5 mm working ports in the suprapubic and right lower quadrant. The descending colon was mobilized medially by incising the white line of Toldt towards the splenic flexure. The tattoo was present distal to the splenic flexure within the descending colon. The mobilization was carried up to the splenic flexure and the flexure was mobilized from the splenic colic ligament. The gastrocolic ligament was opened and there were some adhesions between the transverse colon to the abdominal wall from his prior gastric band surgery which were carefully dissected. Additional 5 mm ports were placed in the right upper quadrant and then we proceeded with the cholecystectomy. Gallbladder was notable for multiple stones and a thickened overlying in omentum. The hepatocystic triangle was identified and was carefully skeletonized and the cystic duct and cystic artery were clearly seen entering the gallbladder. The cystic artery was clipped with the 5 mm Weck hemoclip once this on the specimen side and twice on the stay side. It was then sharply divided. The cystic artery was then divided using the LigaSure. The gallbladder was then removed from the gallbladder fossa. For an upper midline incision was then made and a wound protector was placed. The colon was exteriorized. The colon was divided at the distal portion of the transverse colon. Window within the mesentery was made and the bowel was divided with the ALONZO stapler 75 mm blue load. The mesentery was then taken with the LigaSure and then the distal descending colon was divided using 2nd fire of the GI stapler. Specimen was removed labeled left colon. It was opened on the back table and the residual polyp within it was observed and marked with a Prolene suture. Next a a hand-sewn end-to-end anastomosis was formed. The back wall was formed with interrupted silk suture 3-0. The staple lines were then resected and the inner layer was performed with a running Vicryl suture. The front the anastomosis was then imbricated with interrupted silk suture. Anastomosis was tested was widely patent without cyst attention and well perfused, it was returned to the abdomen and the abdomen was copiously irrigated with sterile saline and hemostasis was checked. The midline fascia was then closed with running 1. PDS suture from above and below. Subcutaneous tissue was closed with Vicryl skin closed with Monocryl followed by Dermabond and Steri-Strips. Complications: none Post-operative Condition: stable Disposition: Acute Care
[2021-10-20] MEDS: OXYCODONE/ACETAMINOPHEN 5/325 TABLET 1 TAB PO (13:44)
--- NOTE | 2021-10-20 13:54 | SUR.PHASEI ---
Pt denies distress, reports pain as tolerable, dressings C/D/I, and ready to transfer to room. Report given to MARION Turk using SBAR with time allowed for questions. Pt transferred to room 206 with all personal belongings. Updated spouse
[2021-10-20] MEDS: PIPERACILLIN/TAZO 3.375 GM in SODIUM CHLORIDE 0.9% 100 ML IV ×2 (15:48→22:49)
[2021-10-20] MEDS: SODIUM CHLORIDE 0.9% 1,000 ML 100 ML IV (15:48)
[2021-10-20] MEDS: OXYCODONE IR 5 MG TABLET PO ×2 (16:35→20:54)
[2021-10-20] MEDS: ACETAMINOPHEN 325 MG TABLET 650 MG PO (17:29)
[2021-10-20] MEDS: SUCRALFATE 1 GM/10 ML ORAL SUSP PO ×2 (17:29→20:55)
[2021-10-20] MEDS: OXYCODONE IR 10 MG TABLET PO (19:03)
[2021-10-20] MEDS: KETOROLAC 30 MG/ML VIAL IV (20:54)
[2021-10-20] MEDS: PANTOPRAZOLE DR 20 MG TABLET PO (22:48)
[2021-10-20] MEDS: GABAPENTIN 300 MG CAPSULE PO (22:49)
[2021-10-21] VITALS (10 sets, daily range): BP systolic 108–118; BP diastolic 59–71; PULSE 70–86; RESP 18; TEMP 35.9–36.5; O2SAT 95–98
[2021-10-21] MEDS: ACETAMINOPHEN 325 MG TABLET 650 MG PO ×4 (00:52→20:16)
[2021-10-21] MEDS: OXYCODONE IR 10 MG TABLET PO ×4 (00:53→16:21)
[2021-10-21] MEDS: KETOROLAC 30 MG/ML VIAL IV ×4 (01:59→20:17)
[2021-10-21] MEDS: SODIUM CHLORIDE 0.9% 1,000 ML 100 ML IV (02:43)
[2021-10-21] MEDS: PIPERACILLIN/TAZO 3.375 GM in SODIUM CHLORIDE 0.9% 100 ML IV (05:58)
[2021-10-21] MEDS: PANTOPRAZOLE DR 20 MG TABLET PO ×2 (05:59→20:17)
[2021-10-21 07:47] LABS: Add Manual Diff / Slide Review NO; Basophils Absolute Auto 0 /uL (0-100); Eosinophils Absolute Auto 0 /uL (0-450); Eosinophils Percent Auto 0.2 % (2-4); Hemoglobin 11.1 g/dL (13.5-17.5); Lymphocytes Absolute Auto 1100 /uL (1100-4500); Lymphocytes Percent Auto 13.6 % (25-40); Mean Corpuscular HGB Conc 33.6 % (30-36); Mean Corpuscular Hemoglobin 25.8 PG (26-34); Mean Corpuscular Volume 76.8 fL (80-100); Monocytes Absolute Auto 1300 /uL (0-900); Monocytes Percent Auto 16.4 % (3-14); Neutrophils Absolute Auto 5700 /uL (1500-7000); Neutrophils Percent Auto 69.8 % (50-75); Platelet Count 182 X10^3/uL (150-400); Red Cell Distribution Width 14.8 % (11.6-14.8); White Blood Cell Count 8.2 X10^3/uL (4.5-11.0)
[2021-10-21 07:58] LABS: BUN Creatinine Ratio 11.4 (6-22); Blood Urea Nitrogen 10 mg/dL (9-20); Calcium 7.6 mg/dL (8.4-10.2); Carbon Dioxide 24 mmol/L (22-32); Chloride 108 mmol/L (98-107); Estimated Glomerular Filt Rate > 60 mL/min (>60); Glucose 90 mg/dL (70-100); HEMOLYSIS < 15 (0-50); Potassium 3.8 mmol/L (3.4-5.1); Sodium 136 mmol/L (137-145)
[2021-10-21] MEDS: SUCRALFATE 1 GM/10 ML ORAL SUSP PO ×4 (09:30→20:17)
--- NOTE | 2021-10-21 10:01 | PM.PNPO.1 ---
Subjective Subjective Date Patient Seen: 10/21/21 Time Patient Seen: 10:01 Interval history: No acute overnight events. Pain is well controlled. No nausea vomiting. No flatus Exam Vital Signs (past 8 hours): - 10/21/21 06:00 Pulse Oximetry 97 Oxygen Delivery Method Room Air Oxygen Flow Rate 0 Oxygen Delivery Method Room Air Oxygen Flow Rate 0 Narrative Exam Narrative: General adult male alert oriented no acute distress Abdomen soft appropriately tender to palpation. Incisions clean dry intact. Objective Labs Result Diagrams: 10/21/21 07:06 10/21/21 07:06 Labs: Laboratory Results - last 24 hr 10/21/21 10/21/21 07:06 07:06 WBC 8.2 RBC 4.30 L Hgb 11.1 L Hct 33.0 L MCV 76.8 L MCH 25.8 L MCHC 33.6 RDW 14.8 Plt Count 182 Neut % (Auto) 69.8 Lymph % (Auto) 13.6 L [place] % (Auto) 16.4 H Eos % (Auto) 0.2 L Baso % (Auto) 0.0 Neut # (Auto) 5700 Lymph # (Auto) 1100 [place] # (Auto) 1300 H Eos # (Auto) 0 Baso # (Auto) 0 Sodium 136 L Potassium 3.8 Chloride 108 H Carbon Dioxide 24 BUN 10 Creatinine 0.88 Estimated GFR > 60 BUN/Creatinine Ratio 11.4 Glucose 90 Calcium 7.6 L PFSH Medical History Asthma Surgical History Hx of laparoscopic gastric banding Family History Mother Hypertension Grandfather Heart disease Social History marital status: household members: spouse and children occupational status: employed Smoking Status: Never smoker alcohol intake: former substance use type: does not use Assessment & Plan Post-op Postoperative Procedures: Procedures Operation Date: 10/20/21 07:45 Actual Procedure Side Surgeon p Laparoscopic Cholecystectomy Rick Bullard MD p Laparoscopic Colectomy Rick Bullard MD Postoperative status narrative: 51-year-old male postoperative day 1 status post laparoscopic cholecystectomy and colectomy for benign disease. He is doing well and progressing. -full liquid diet -DC IV fluids -remove Watters catheter -out of bed ambulate PT OT -SCDs and prophylactic Lovenox for VT
--- NOTE | 2021-10-21 11:35 | PT.IIE ---
Current Diagnoses Polyp of colon (10/20/21) Calculus of bile duct without cholangitis or cholecystitis without obstruction (10/20/21) Surgery Performed Operation Date: 10/20/21 07:45 Actual Procedures p Laparoscopic Cholecystectomy - Rick Bullard MD p Laparoscopic Colectomy - Rick Bullard MD Surgical History (Last Reviewed 09/23/21 @ 18:26 by Rick Bullard MD) Hx of laparoscopic gastric banding Medical History (Last Reviewed 09/23/21 @ 18:26 by Rick Bullard MD) Asthma Physical Therapy Inpatient Evaluation/Re-Eval M1 PT/OT-IP Prior Functional Status Start: 10/21/21 13:10 Freq: NEEDED Status: Active Protocol: Document 10/21/21 11:35 AB (Rec: 10/21/21 13:20 AB [id number]) Medical Review Prior Functional Status Medical History Reviewed Yes Communication able to make needs known Mobility and Gait pt statd that he is independent with all mobilities and ambulation without AD Social History Household Members spouse,children Living Arrangements House Number of Floors (Floors) Two Floors Number of Stairs To Enter/Railing? pt stays on main level of the house no steps to enter M2 PT-IP Current Condition Start: 10/21/21 13:10 Freq: NEEDED Status: Active Protocol: Document 10/21/21 11:35 AB (Rec: 10/21/21 13:20 AB [id number]) Physical Therapy Current Condition Current Condition Evaluation Date 10/21/21 Treatment Diagnosis s/p cholecystectomy and colectomy; difficulty in walking Onset Date 10/20/21 M3 PT-IP Subjective Start: 10/21/21 13:10 Freq: NEEDED Status: Active Protocol: Document 10/21/21 11:35 AB (Rec: 10/21/21 13:20 AB [id number]) Subjective Physical Therapy Visit Type Type Initial Evaluation Visit Start Time 11:35 Visit Stop Time 12:15 Total Visit Minutes 40 Number of STRIKE PLANNING APPLICATIONS Visits 0 Physical Therapy Visit Comments Patient Comments agreeable to do PT Therapy Pain Assessment Pain When Pain Assessed At Rest Pain Present Pain Present Pain Reported Location Medial Abdomen Intensity 2 Scale Used Numeric (0 - 10) Pain Management Techniques Modification of Treatment,Re- positioning M4 PT-IP Mobility and Gait Start: 10/21/21 13:10 Freq: NEEDED Status: Active Protocol: Document 10/21/21 11:35 AB (Rec: 10/21/21 13:20 AB [id number]) PT-Bed Mobility Assessment Rolling Type of Rolling Log Rolling Level of Assist Standby Assistance Supine to Sit Supine to Sit Standby Assistance Sit to Supine Sit to Supine Standby Assistance PT-Transfer Assessment Sit to and From Stand Sit to and from Stand Independent Equipment Transfer Assistive Device None Orthotic/Prosthetic Devices or Brace: No Comments Mobility Comments pt agreeable to do PT. Spouse in room with pt. educated pt on abdominal precautions. completed log roll supine to sit SBA. completed sit to stand mod I and ambulated in room without AD mod I. ambulated out in the hallway without AD ~ 125 ft SBA. has increase BLE ER and pt stated that he is pigeoned toed. presents with waddling gait but without LOB. stated that he is tired after walking and requested to go back to bed. completed sit to supine SBA. educated pt on safety and cleared to mobilize in room mod I but ask for assistance if needed for safety. recommending SBA for long distance ambulation due to decrease activity tolerance and pt agreed. informed pt to ask for assistance whe walking in the hallway for safety. positioned pt in bed. call light and table placed within reach. Gait Assessment Gait Gait Assistance Required: Standby Assistance Distance (Feet) 125 Able to Maintain Weight Bearing Status Yes During Gait Assistive Devices Assistive Device None Orthotic/Prosthetic Devices or Brace: No Gait Deviations General Gait Pattern Decreased Stride Length, Decreased Feet Clearance,Step- to Gait Factors Limiting Gait Function Factors Limiting Gait Function Decreased Activity Tolerance PT-Balance Assessment Sitting Balance and Reactions Static Sitting Balance Ability Normal Dynamic Sitting Balance Ability Normal Standing Balance and Reactions Static Standing Balance Ability Good Dynamic Standing Balance Ability Good Device Used without AD M5 PT-IP Objective Assessments Start: 10/21/21 13:10 Freq: NEEDED Status: Active Protocol: Document 10/21/21 11:35 AB (Rec: 10/21/21 13:20 AB [id number]) Orientation Orientation/Cognition Level of Alertness Alert Orientation Name,Age,Birthday,Month,Date, Year,Day of Week,Place, Situation Safety Awareness Understands Safety Issues Memory Description No Deficits Noted Gross Range of Motion Lower Extremity ROM Assessment Within Functional Limits Strength Lower Extremity Strength Assessment Within Functional Limits Coordination Assessment Gross Coordination Gross Coordination WNL Muscle Tone Muscle Tone WNL Yes M6 PT-IP Treatment Start: 10/21/21 13:10 Freq: NEEDED Status: Active Protocol: Document 10/21/21 11:35 AB (Rec: 10/21/21 13:20 AB [id number]) Physical Therapy Treatment Education Education Provided Precautions,Post-Op Packet, Safety M7 PT-IP Assessment and Plan Start: 10/21/21 13:10 Freq: NEEDED Status: Active Protocol: Document 10/21/21 11:35 AB (Rec: 10/21/21 13:20 AB [id number]) PT Summary Assessment and Plan Summary Impairments Pain,Strength,Bed Mobility, Transfers,Gait,Activity Tolerance Assessment Summary PT eval completed. Pt cleared to be modified independent in room without AD. will require SBA for hallway ambulation for safety due to decrease activity tolerane due to recent surgery. informed nurse and agreed. also informed pt that no further PT intervention needed and this time and pt agreed. pt also agreed to ambulate with nursing staff. pt may go home when medicallty stable. Frequency of Treatment Frequency Of Treatment Discharge Precautions Abdominal Surgery Precautions Log Roll,Lifting Restrictions, Gait Belt above Incisional Area Recommendations To Nursing Amount of Assist Needed Standby Assistance Discharge Recommendations PT Discharge Recommendations Home with Assistance Transportation Needs at Discharge Private Vehicle
--- NOTE | 2021-10-21 13:20 | CM.DANOTE ---
Initial Discharge Planning Note: Case received, EMR reviewed. Met with patient and spouse in his room. Payer: Mary COCHRAN and self pay PCP: Dr Juárez 51 year old male admitted yesterday, 10/20/21, with dx of calculus of bile duct and polyp of colon. He underwent lap choley and colectomy. He is POD#1 today. Progressing. On full liquid diet. Catheter to be dc'd. 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 P: When stable, he desires to return home with prior living arrangements. His will provide transport. Selina Betancourt RN/COURTNEYP Discharge Planning/Care Management CM Discharge Assessment Start: 10/21/21 13:18 Freq: Status: Active Protocol: Document 10/21/21 13:19 (Rec: 10/21/21 13:20 [id number]) Discharge Planning Assessment Assigned Executive Coordinator Selina Betancourt RN/COURTNEYP Advance Directives? No Advance Directives on File No History Provided By Patient Has Patient been admitted in last 30 No days? Prior Living Arrangements House Household Members spouse,children Type of transporation used prior to Drives own vehicle admit Independent with ADL's Yes Is patient alert and oriented? Yes Caregiver for Another No Barriers to Discharge No Discharge Plan Home Referrals Initiated None needed Whiteboard Updated in Patient Room with Yes name and ext. # of Executive Coordinator Review Status In Process Next Review Type Continued Stay Review Pre-Anesthesia Assessment Start: 10/13/21 12:18 Freq: Status: Active Protocol: Document 10/13/21 12:18 [facility] (Rec: 10/13/21 12:36 [facility] [id number]) Pre-Anesthesia Assessment Patient Information Reviewed Via Chart Review Comment COVID screen not identified Seen Specialist in Last 12 Months Yes Specialist Seen Emergency,General surgeon Primary Language Swedish Crystallizer Operator Required No Height 172.72 cm Weight 102.058 kg Body Mass Index (BMI) 34.2 Barriers to Learning None Hx Anesthesia Reactions No Hx Family Anesthesia Reaction Yes: mother woke up a few times Hx Malignant Hyperthermia No Hx Blood Transfusion Reaction No Anesthesia Review Requested No Lathe Spotter No alcohol intake never Smoking Status Never smoker Substance Use Type does not use Pain Present Pain Reported History of Falling (Recent or History of No ) Patient is completely paralyzed or No completely immobile Mental Status Oriented to own ability Is patient on oxygen? No Hx Sleep Apnea No CPAP/BIPAP use not prescribed Currently Taking a Beta Chel No Anti-Coagulant Therapy No Has a Compounding Technician No Cardiac Testing No Hx Pacemaker/ICD No Pacemaker Rep Required? No Cardiac Clearance Received Not Applicable Gastrointestinal Symptoms Abdominal Pain,Nausea,Vomiting Urinary Catheter Present No Hx Urinary Self Catheterization No Diabetes No Presence of External or Internal Medical Yes: lap band Devices Received a COVID vaccine? Yes Marital Status Lives With spouse,children Patient Discharge Plan Description Return Home Advance Directives? No Advance Directives on File No Power of Joint Maker Machine No
--- NOTE | 2021-10-21 18:36 | PC.NURSE ---
Pt states he, has gas and has been unable to pass gas. Pt states, discomfort from pressure of gas and that Dr. Bullard was going to order medication to relieve the gas. Spoke to Dr. Bullard via phone and no new order.
[2021-10-21] MEDS: SIMETHICONE 80 MG TABLET PO (20:17)
[2021-10-21] MEDS: GABAPENTIN 300 MG CAPSULE PO (20:17)
[2021-10-21] MEDS: OXYCODONE IR 5 MG TABLET PO (22:27)
[2021-10-22] MEDS: OXYCODONE IR 5 MG TABLET PO ×3 (02:25→11:28)
[2021-10-22] MEDS: SIMETHICONE 80 MG TABLET PO ×2 (02:26→08:32)
[2021-10-22 02:30] VITALS: BP 122/78; PULSE 73; RESP 18; TEMP 36.6; O2SAT 95
[2021-10-22 02:40] VITALS: O2SAT 95
[2021-10-22] MEDS: OXYCODONE IR 10 MG TABLET PO ×2 (03:20→10:30)
[2021-10-22 06:00] VITALS: O2SAT 96
[2021-10-22] MEDS: ACETAMINOPHEN 325 MG TABLET 650 MG PO ×2 (06:01→11:28)
[2021-10-22] MEDS: PANTOPRAZOLE DR 20 MG TABLET PO (06:02)
[2021-10-22 07:25] VITALS: BP 126/73; PULSE 82; RESP 18; TEMP 36.7; O2SAT 95
[2021-10-22 07:35] LABS: Add Manual Diff / Slide Review NO; Basophils Absolute Auto 0 /uL (0-100); Basophils Percent Auto 0.4 % (0-2); Eosinophils Absolute Auto 200 /uL (0-450); Eosinophils Percent Auto 2.3 % (2-4); Hematocrit 34.7 % (41-53); Hemoglobin 11.5 g/dL (13.5-17.5); Lymphocytes Absolute Auto 1700 /uL (1100-4500); Mean Corpuscular HGB Conc 33.1 % (30-36); Mean Corpuscular Hemoglobin 25.8 PG (26-34); Mean Corpuscular Volume 77.7 fL (80-100); Monocytes Absolute Auto 1100 /uL (0-900); Monocytes Percent Auto 12.8 % (3-14); Neutrophils Absolute Auto 5300 /uL (1500-7000); Neutrophils Percent Auto 63.5 % (50-75); Platelet Count 180 X10^3/uL (150-400); Red Blood Cell Count 4.47 X10^6/uL (4.5-5.9); Red Cell Distribution Width 15.1 % (11.6-14.8); White Blood Cell Count 8.3 X10^3/uL (4.5-11.0)
[2021-10-22 07:43] LABS: BUN Creatinine Ratio 9.5 (6-22); Blood Urea Nitrogen 8 mg/dL (9-20); Calcium 7.9 mg/dL (8.4-10.2); Carbon Dioxide 28 mmol/L (22-32); Chloride 105 mmol/L (98-107); Estimated Glomerular Filt Rate > 60 mL/min (>60); Glucose 89 mg/dL (70-100); HEMOLYSIS < 15 (0-50); Potassium 3.5 mmol/L (3.4-5.1); Sodium 139 mmol/L (137-145)
[2021-10-22] MEDS: SUCRALFATE 1 GM/10 ML ORAL SUSP PO (08:30)
[2021-10-22] MEDS: ENOXAPARIN 40 MG/0.4 ML SYRINGE SUBCUT (08:32)
[2021-10-22 10:00] VITALS: O2SAT 95
[2021-10-22] MEDS: POTASSIUM CHLORIDE 20 MEQ TAB 40 MEQ PO (10:30)
[2021-10-22 12:00] VITALS: BP 129/67; PULSE 83; RESP 18; TEMP 37.1; O2SAT 95
--- NOTE | 2021-10-22 12:06 | P.DS_ITS ---
History of Present Illness History of Present Illness Date Patient Seen: 10/22/21 Time Patient Seen: 12:07 Chief complaint: INPT Narrative: 51 y.o man history of biliary colic and a incompletely resected colonic polyp who is admitted to the hospital for elective laparoscopic cholecystectomy and colectomy. Discharge Providers Provider Date of admission: 10/20/21 06:25 Discharge Date: 10/22/21 Primary care physician: Keyshawn Juárez MD Consults: 10/21/21 10:00 Consult to Physical Therapy Evaluate & Treat Comment: Physician Instructions: Evaluate and Treat Discharge provider: Rick Bullard MD Summary Hospital Course Discharge Diagnosis: biliary colic colonic polyp sp laparoscopic cholecystectomy sp laparoscopic assisted colectomy Hospital Course: Patient underwent a laparoscopic assisted left colectomy and cholecystectomy on October 20. He tolerated the operation well his recovery was unremarkable. At discharge she is ambulatory pain is well controlled with oral medication and he is tolerant of diet with return of bowel function. He is afebrile and without leukocytosis. Exam Vital Signs (past 8 hours): - 10/22/21 06:00 10/22/21 07:25 Temperature 98.0 F Pulse Rate 82 Respiratory Rate 18 Blood Pressure 126/73 Pulse Oximetry 96 95 Oxygen Delivery Method Room Air Oxygen Flow Rate 0 0 Oxygen Delivery Method Room Air Oxygen Flow Rate 0 Narrative Exam Narrative: General adult male alert oriented no acute distress Abdomen soft appropriately tender to palpation. Incisions clean dry intact with Steri-Strips. Objective Labs Result Diagrams: 10/22/21 07:02 10/22/21 07:02 Labs: Laboratory Results - last 24 hr 10/22/21 10/22/21 07:02 07:02 WBC 8.3 RBC 4.47 L Hgb 11.5 L Hct 34.7 L MCV 77.7 L MCH 25.8 L MCHC 33.1 RDW 15.1 H Plt Count 180 Neut % (Auto) 63.5 Lymph % (Auto) 21.0 L [place] % (Auto) 12.8 Eos % (Auto) 2.3 Baso % (Auto) 0.4 Neut # (Auto) 5300 Lymph # (Auto) 1700 [place] # (Auto) 1100 H Eos # (Auto) 200 Baso # (Auto) 0 Sodium 139 Potassium 3.5 Chloride 105 Carbon Dioxide 28 BUN 8 L Creatinine 0.84 Estimated GFR > 60 BUN/Creatinine Ratio 9.5 Glucose 89 Calcium 7.9 L PFSH Medical History Asthma Surgical History Hx of laparoscopic gastric banding Family History Mother Hypertension Grandfather Heart disease Social History marital status: household members: spouse and children occupational status: employed Smoking Status: Never smoker alcohol intake: former substance use type: does not use Discharge Plan Discharge Plan Patient Disposition: Home Provider Discharge Comment: -Okay to shower tomorrow. -Do not submerge wounds in water until seen in follow-up. -No lifting >20 lbs x 4 weeks. -Walking only for exercise for 4 weeks. -No driving while taking narcotics. Discharge orders & Medications Prescriptions: New acetaminophen 325 mg Tablet 650 mg PO Q6HR Qty: 60 0RF oxycodone 10 mg Tablet 10 mg PO Q4HR PRN (Reason: Pain, Severe (7-10)) Qty: 30 0RF ibuprofen 200 mg tablet 400 mg PO Q6H Qty: 60 0RF docusate sodium [Colace] 100 mg capsule 100 mg PO BID Qty: 30 0RF Continued gabapentin 300 mg capsule 300 mg PO BEDTIME omeprazole 20 mg capsule,delayed release(DR/EC) 20 mg PO BID albuterol sulfate 90 mcg/actuation HFA aerosol inhaler 2 puff inhalation Q6H PRN (Reason: Shortness Of Breath) clonazepam 1 mg tablet 1 tab PO PRN PRN (Reason: Anxiety) Label Comments: TAKE 1 TABLET BY MOUTH EVERY 12 HOURS NEEDED sucralfate [Carafate] 100 mg/mL suspension 5 ml PO QID Qty: 420 0RF Rx Instructions: swish in mouth and swallow; use after food/drink Discontinued neomycin 500 mg tablet 1 g PO TID Qty: 6 0RF Rx Instructions: administer at 1 PM, 2 PM, and 10 PM the day prior to surgery metronidazole 500 mg tablet 500 mg PO TID Qty: 3 0RF Rx Instructions: Take at 1pm, 2pm, and 10pm the day prior to surgery. Follow up/Referrals: Rick Bullard MD [Physician] - 2 Weeks Diet/Activity/Treatments Diet: Diet as Tolerated Skin/Wound/Dressing Care Report to your healthcare provider any signs of infection, such as:: chills, fever, increased pain, unusual drainage and unusual redness Visit Report/Discharge Packet Instructions: DI for Open Cholecystectomy, DI for Colectomy, DI for Laparoscopy, DI for Prescription Opioid Use, [facility]: Wound Care Stand Alone Forms: Surgery Discharge Discharge Data Primary Care Provider: Keyshawn Juárez
== END 2021-10-22 12:46 | disposition home or self-care (01) | DRG 358 ==
PROVIDERS: Admitting Provider Surgery; PCP Family Medicine; Referring Provider Surgery; Visit Provider Surgery
PROC: 0FT44ZZ Resection of Gallbladder, Percutaneous Endoscopic Approach (ICD-10-PCS; CPT 47562; principal; 2021-10-20 07:45)
PROC: 0DTE0ZZ Resection of Large Intestine, Open Approach (ICD-10-PCS; 2021-10-20 07:45)
DX: D12.4 Benign neoplasm of descending colon (principal); K80.70 Calculus of gallbladder and bile duct without cholecystitis without obstruction; J45.909 Unspecified asthma, uncomplicated; Z20.822 Contact with and (suspected) exposure to COVID-19
CPT/HCPCS: 36415; 44204; 47562; 80048; 82962; 85025; 87635; 97161; 97530; C9803; C9290; J1100; J1650; J1885; J2250; J2405; J2543; J2704; J3010

== ENCOUNTER → 2023-06-16 19:08 | Outpatient (CLI) | payer OTHER, SELFPAY ==
[2021-10-20 16:19] VITALS: BMI 34.2
== END ==
PROVIDERS: PCP Family Medicine; Visit Provider Registered Nurse
DX: R30.9 Painful micturition, unspecified (principal); R31.9 Hematuria, unspecified
CPT/HCPCS: 87086

== ENCOUNTER → 2023-11-04 10:40 | Outpatient (CLI) | payer OTHER, SELFPAY ==
[2021-10-20 16:19] VITALS: BMI 34.2
--- NOTE | 2023-11-04 10:42 | DI.RAD.S_ITS ---
PROCEDURE: XR HAND RT MIN 3V INDICATIONS: Right-hand pain TECHNIQUE: 3 views of the hand(s) acquired. COMPARISON: None. FINDINGS: Bones: Acute boxer type fracture involving 5th metacarpal head and neck is seen with fracture line extending to 5th MCP joint space. There is dorsal angulation at fracture site. Carpal bones are normally aligned. No suspicious bony lesions. Soft tissues: No suspicious soft tissue calcifications. IMPRESSION: Acute boxer type intra-articular fracture involving 5th metacarpal head and neck as above. Dictated by: Vincent Severino M.D. on 11/04/2023 at 16:59 Approved by: Vincent Severino M.D. on 11/04/2023 at 17:00
== END ==
LOC: RAD 10:41
PROVIDERS: PCP Family Medicine; Referring Provider Nurse Practitioner Family; Visit Provider Nurse Practitioner Family
DX: S62.336A Displaced fracture of neck of fifth metacarpal bone, right hand, initial encounter for closed fracture (principal); M79.641 Pain in right hand; X58.XXXA Exposure to other specified factors, initial encounter
CPT/HCPCS: 73130

== ENCOUNTER → 2025-02-24 | Outpatient (CLI) | payer OTHER, SELFPAY ==
[2021-10-20 16:19] VITALS: BMI 34.2
--- NOTE | 2025-02-24 11:49 | DI.RAD.S_ITS ---
PROCEDURE: XR CERVICAL SPINE 4V OR 5V INDICATIONS: NUMBNESS/R HAND TINGLING TECHNIQUE: 5 views of the cervical spine acquired. COMPARISON: [facility], CR, XR CERVICAL SPINE 4V OR 5V, 01/09/2019, 11:59. FINDINGS: Bones: No fractures or dislocations to the C7 level. Moderate disc height loss at the C6-C7 level with adjacent endplate sclerosis and anterior osteophytosis. Oblique images demonstrate no bony foraminal stenoses. Soft tissues: No prevertebral soft tissue swelling. IMPRESSION: Mild degenerative change of the cervical spine without evidence of acute osseous abnormality. Dictated by: Mati Beckett M.D. on 02/25/2025 at 23:16 Approved by: Mati Beckett M.D. on 02/25/2025 at 23:17
== END ==
PROVIDERS: PCP Family Medicine; Referring Provider Family Medicine; Visit Provider Family Medicine
DX: M47.812 Spondylosis without myelopathy or radiculopathy, cervical region (principal); R20.0 Anesthesia of skin; R20.2 Paresthesia of skin
CPT/HCPCS: 72050